=== PATIENT | male | born 1945 | race Two or more races ===

== ENCOUNTER 2020-06-28 11:47 | Outpatient (REF) | payer MEDICARE, SELFPAY | END 2020-06-28 11:48 | disposition home or self-care (01) | LOC: HO.LAB 11:47 | PROVIDERS: Visit Provider Internal Medicine | DX: Z20.828 Contact with and (suspected) exposure to other viral communicable diseases (principal) | CPT/HCPCS: C9803; U0003 ==

== ENCOUNTER 2020-06-29 09:11 | Inpatient (IN) | payer MEDICARE, SELFPAY ==
[2020-06-29] VITALS (13 sets, daily range): BP systolic 111–135; BP diastolic 50–69; PULSE 73–89; RESP 17–26; TEMP 36.6–38.1; O2SAT 86–94; BMI 31.1
--- NOTE | 2020-06-29 09:39 | XR_ITS ---
EXAMINATION: XR CHEST CLINICAL INFORMATION: Shortness of breath and cough COMPARISON: Previous chest x-ray July 2018 TECHNIQUE: Frontal view of the chest was obtained. FINDINGS: The cardiac and mediastinal contours are stable. The lung volumes are low. There is bilateral multilobar airspace disease. There is no pleural effusion or pneumothorax. Bony structures are unremarkable. XR/XR chest 1V IMPRESSION: Bilateral multilobar airspace disease suggestive of pneumonia.
--- NOTE | 2020-06-29 09:40 | ED.SOB ---
HPI - SOB/Dyspnea General Chief Complaint: General Medical Stated Complaint: SOB Time Seen by Provider: 06/29/20 09:27 Source: patient Mode of arrival: ambulatory History of Present Illness HPI Narrative: 75-year-old male with no reported past medical history presented to ED complaining of SOB, productive cough with blood-tinged sputum intermittently, decreased p.o. intake, generalized fatigue, and weakness x1 week. Reports was tested for COVID-19 yesterday, result pending. Was in contact with COVID-19 positive family member, self isolated for 14 days. Denies fever, chills, vomiting/diarrhea, LE edema, recent travel MD elicited complaint: shortness of breath and cough Related Data Home Medications Medication Instructions Recorded Confirmed amlodipine 1 tab PO DAILY 06/29/20 06/29/20 desonide appl TOPICAL BID 06/29/20 omeprazole 1 cap PO DAILY 06/29/20 06/29/20 paroxetine HCl 1 tab PO DAILY 06/29/20 06/29/20 Allergies Allergy/AdvReac Type Severity Reaction Status Date / Time peanut [Peanut] Allergy Mild RASH AND Unverified 04/07/20 17:32 HIVES Review of Systems Review of Systems: Constitutional: No Weight loss, No Fever, No Chills, No Night Sweats, + Fatigue, + Malaise ENT/Mouth: No Nasal Congestion, No Sinus Pain, No Hoarseness, No sore throat, No Rhinorrhea Eyes: No Eye Pain, No Swelling, No Redness, No Foreign Body, No Discharge, No Vision Changes Cardiovascular: No Chest Pain, + SOB, No Dyspnea on Exertion, No Orthopnea, No Edema, No Palpitations Respiratory: + Cough, + Sputum, No Wheezing, No Dyspnea Gastrointestinal: No Nausea, No Vomiting, No Diarrhea, No Abdominal pain Genitourinary: No irregular bleeding, No Dysuria, No Urinary Frequency, No Hematuria Musculoskeletal: No joint pain, + Myalgias, No Joint Swelling Skin: No Skin Lesions, No rash Neuro: + Weakness, No Numbness, No Paresthesias, No Loss of Consciousness, No Dizziness, No Headache Yes all other systems are reviewed and are negative [facility] Past Medical History Attestation statement: The following information was validated with the patient. Medical History (Updated 06/29/20 @ 14:02 by SERA Da Silva) Anxiety Hypertension Social History Social History Smoking Status: Never smoker Smoked in Last 30 Days: No Use of substances other than those prescribed or required for medical reasons: No Advance Directives: No Advance Directives Information Provided: Yes Physical Exam Vital Signs: Vital Signs: Last Vital Signs Temp 100.3 F 06/29/20 13:52 Pulse 77 06/29/20 13:52 Resp 18 06/29/20 13:52 BP 124/57 L 06/29/20 13:52 Pulse Ox 93 06/29/20 13:52 Body Mass Index 31.1 Const: General: cooperative and healthy appearing Orientation/consciousness: patient oriented x3 Limitations: no limitations HENMT: Head: Yes normal to inspection Ears: hearing grossly normal bilaterally General nose exam: Normal external nose present Face and sinus: Yes normal facial exam Eyes: General: appearance normal, both eyes and all related structures EOM: EOMs intact bilaterally Neck: Neck: Yes normal visual inspection Resp: Effort & Inspection: normal respiratory effort Auscultation: clear to auscultation bilaterally, no rales, no rhonchi and no wheezes Cardio: Rate: regular rate Heart sounds: S1 normal heart sound present and S2 normal heart sound present GI: Inspection: Yes normal to inspection Palpation (GI): Soft to palpation, nontender, no guarding and not rigid Skin: Rashes: no rashes Wounds: no wounds Neuro: General: patient oriented x3 Extrem: Other: No LE edema or calf ttp General: Yes normal to inspection Course Course Course Narrative: -ferritin, LDH, and CRP elevated > suggestive of COVID-19, AST/ALT/bilirubins mildly elevated -orthostatic vital signs negative -initial troponin 9.1> will obtain 3 hour repeat -CXR with bilateral multilobar airspace disease suggestive of pneumonia > rapid COVID-19/influenza/RSV ordered, IV empiric antibiotics, lactate, blood cultures also ordered > low concern for severe sepsis is likely viral etiology -Patient noted to be hypoxic 88-90% on RA, improved to 95% on 3L NC -lactic 1.0, COVID-19+ >> plan for admission MDM - SOB/Dyspnea MDM Narrative Medical decision making narrative: 75-year-old male with no reported past medical history presented to ED complaining of SOB, productive cough with blood-tinged sputum intermittently, decreased p.o. intake, generalized fatigue, and weakness x1 week. On exam low-grade temp a 100.5?, 92% on room air, no respiratory distress, lungs CTA, abdomen soft/nontender. Concern for viral syndrome/COVID-19 vs dehydration/metabolic abnormalities. Low concern for sepsis. Lower concern for PE Plan: EKG, labs, UA, orthostatics, CXR, reassess Lab Data Result diagrams: 06/29/20 10:21 06/29/20 10:21 Labs: Lab Results 06/29/20 06/29/20 06/29/20 Range/Units 10:21 10:21 10:21 WBC 8.0 (4.8-10.8) X10*3/uL RBC 5.01 (4.60-5.80) X10*6/uL Hgb 14.3 (14.0-18.0) g/dl Hct 40.8 L (42-52) % MCV 81.4 (80-98) fL MCH 28.5 (27.0-33.0) pg MCHC 35.0 (31.0-36.0) g/dl RDW 13.2 (11.0-16.0) % Plt Count 387 (160-400) X10*3/uL MPV 9.3 L (9.4-12.4) fL Immature Gran % (Auto) 0.5 H (0.0-0.4) % Neut % (Auto) 81.0 H (45-73) % Lymph % (Auto) 7.9 L (20-40) % [place] % (Auto) 10.4 (2-11) % Eos % (Auto) 0.1 (0-4) % Baso % (Auto) 0.1 (0-2) % Lymph # (Auto) 0.6 L (1.2-4.9) X10*3/uL [place] # (Auto) 0.8 (0.1-1.2) X10*3/uL Eos # (Auto) 0.0 (0.0-0.4) X10*3/uL Baso # (Auto) 0.0 (0.0-0.2) X10*3/uL Abs Immat Gran (auto) 0.04 H (0.00-0.03) X10*3/uL Absolute Neuts (auto) 6.5 (2.0-8.3) X10*3/uL Absolute Nucleated RBC 0.000 (0.0-0.012) X10*3/uL Nucleated RBC % (auto) 0.0 (0.0-0.2) /100WBC Smear Tech's Comments VERIFIED Hold Blue Top SEE NOTE Sodium 131 L (135-145) mmol/L Potassium 4.6 (3.3-5.1) mmol/l Chloride 100 (96-108) mmol/L Carbon Dioxide 23 (22-29) mmol/L Anion Gap 13 (12-20) BUN 11 (9-16) mg/dL Creatinine 0.93 (0.5-1.4) mg/dL Estim Creat Clear Calc 78.2 Estimated GFR > 60 Random Glucose 114 (60-115) mg/dL Lactic Acid (0.5-2.0) mmol/L Calcium 8.0 L (8.4-10.2) mg/dL Magnesium 2.2 (1.6-2.6) mg/dL Ferritin (20-250) ng/mL Total Bilirubin 1.1 H (0.0-1.0) mg/dL Direct Bilirubin 0.6 H (0.0-0.5) mg/dL AST 50 H (5-37) U/L ALT 51 H (0-40) U/L Alkaline Phosphatase 88 (39-117) U/L Lactate Dehydrogenase (118-273) U/L Troponin I High Sens (<3.5-35.0) ng/L C-Reactive Protein (< or = 0.50) mg/dL B-Natriuretic Peptide (<100) pg/mL Total Protein 6.6 (6.5-8.0) g/dL Albumin 3.6 (3.5-5.0) g/dL Lipase 41 (8-78) U/L Procalcitonin ng/mL Urine Color Urine Appearance Urine pH (5.0-8.0) Ur Specific [place] (1.005-1.025) Urine Protein (NEG-TRACE) MG/DL Urine Glucose (UA) (NEG) MG/DL Urine Ketones (NEG) MG/DL Urine Blood (NEG) Urine Nitrite (NEG) Ur Leukocyte Esterase (NEG) Urine RBC (0) /HPF Urine WBC (0-4) /HPF Ur Squamous Epith Cells /LPF Urine Bacteria /LPF Coronavirus (PCR) (Negative) Influenza Type A (PCR) (Negative) Influenza Type B (PCR) (Negative) RSV RNA Qual (PCR) (Negative) 06/29/20 06/29/20 06/29/20 Range/Units 10:21 10:21 10:21 WBC (4.8-10.8) X10*3/uL RBC (4.60-5.80) X10*6/uL Hgb (14.0-18.0) g/dl Hct (42-52) % MCV (80-98) fL MCH (27.0-33.0) pg MCHC (31.0-36.0) g/dl RDW (11.0-16.0) % Plt Count (160-400) X10*3/uL MPV (9.4-12.4) fL Immature Gran % (Auto) (0.0-0.4) % Neut % (Auto) (45-73) % Lymph % (Auto) (20-40) % [place] % (Auto) (2-11) % Eos % (Auto) (0-4) % Baso % (Auto) (0-2) % Lymph # (Auto) (1.2-4.9) X10*3/uL [place] # (Auto) (0.1-1.2) X10*3/uL Eos # (Auto) (0.0-0.4) X10*3/uL Baso # (Auto) (0.0-0.2) X10*3/uL Abs Immat Gran (auto) (0.00-0.03) X10*3/uL Absolute Neuts (auto) (2.0-8.3) X10*3/uL Absolute Nucleated RBC (0.0-0.012) X10*3/uL Nucleated RBC % (auto) (0.0-0.2) /100WBC Smear Tech's Comments Hold Blue Top Sodium (135-145) mmol/L Potassium (3.3-5.1) mmol/l Chloride (96-108) mmol/L Carbon Dioxide (22-29) mmol/L Anion Gap (12-20) BUN (9-16) mg/dL Creatinine (0.5-1.4) mg/dL Estim Creat Clear Calc Estimated GFR Random Glucose (60-115) mg/dL Lactic Acid (0.5-2.0) mmol/L Calcium (8.4-10.2) mg/dL Magnesium (1.6-2.6) mg/dL Ferritin 462 H (20-250) ng/mL Total Bilirubin (0.0-1.0) mg/dL Direct Bilirubin (0.0-0.5) mg/dL AST (5-37) U/L ALT (0-40) U/L Alkaline Phosphatase (39-117) U/L Lactate Dehydrogenase 395 H (118-273) U/L Troponin I High Sens 9.1 (<3.5-35.0) ng/L C-Reactive Protein 16.03 H (< or = 0.50) mg/dL B-Natriuretic Peptide 50 (<100) pg/mL Total Protein (6.5-8.0) g/dL Albumin (3.5-5.0) g/dL Lipase (8-78) U/L Procalcitonin ng/mL Urine Color Urine Appearance Urine pH (5.0-8.0) Ur Specific [place] (1.005-1.025) Urine Protein (NEG-TRACE) MG/DL Urine Glucose (UA) (NEG) MG/DL Urine Ketones (NEG) MG/DL Urine Blood (NEG) Urine Nitrite (NEG) Ur Leukocyte Esterase (NEG) Urine RBC (0) /HPF Urine WBC (0-4) /HPF Ur Squamous Epith Cells /LPF Urine Bacteria /LPF Coronavirus (PCR) (Negative) Influenza Type A (PCR) (Negative) Influenza Type B (PCR) (Negative) RSV RNA Qual (PCR) (Negative) 06/29/20 06/29/20 06/29/20 Range/Units 10:21 12:55 12:55 WBC (4.8-10.8) X10*3/uL RBC (4.60-5.80) X10*6/uL Hgb (14.0-18.0) g/dl Hct (42-52) % MCV (80-98) fL MCH (27.0-33.0) pg MCHC (31.0-36.0) g/dl RDW (11.0-16.0) % Plt Count (160-400) X10*3/uL MPV (9.4-12.4) fL Immature Gran % (Auto) (0.0-0.4) % Neut % (Auto) (45-73) % Lymph % (Auto) (20-40) % [place] % (Auto) (2-11) % Eos % (Auto) (0-4) % Baso % (Auto) (0-2) % Lymph # (Auto) (1.2-4.9) X10*3/uL [place] # (Auto) (0.1-1.2) X10*3/uL Eos # (Auto) (0.0-0.4) X10*3/uL Baso # (Auto) (0.0-0.2) X10*3/uL Abs Immat Gran (auto) (0.00-0.03) X10*3/uL Absolute Neuts (auto) (2.0-8.3) X10*3/uL Absolute Nucleated RBC (0.0-0.012) X10*3/uL Nucleated RBC % (auto) (0.0-0.2) /100WBC Smear Tech's Comments Hold Blue Top Sodium (135-145) mmol/L Potassium (3.3-5.1) mmol/l Chloride (96-108) mmol/L Carbon Dioxide (22-29) mmol/L Anion Gap (12-20) BUN (9-16) mg/dL Creatinine (0.5-1.4) mg/dL Estim Creat Clear Calc Estimated GFR Random Glucose (60-115) mg/dL Lactic Acid 1.0 (0.5-2.0) mmol/L Calcium (8.4-10.2) mg/dL Magnesium (1.6-2.6) mg/dL Ferritin (20-250) ng/mL Total Bilirubin (0.0-1.0) mg/dL Direct Bilirubin (0.0-0.5) mg/dL AST (5-37) U/L ALT (0-40) U/L Alkaline Phosphatase (39-117) U/L Lactate Dehydrogenase (118-273) U/L Troponin I High Sens (<3.5-35.0) ng/L C-Reactive Protein (< or = 0.50) mg/dL B-Natriuretic Peptide (<100) pg/mL Total Protein (6.5-8.0) g/dL Albumin (3.5-5.0) g/dL Lipase (8-78) U/L Procalcitonin 0.11 ng/mL Urine Color Urine Appearance Urine pH (5.0-8.0) Ur Specific [place] (1.005-1.025) Urine Protein (NEG-TRACE) MG/DL Urine Glucose (UA) (NEG) MG/DL Urine Ketones (NEG) MG/DL Urine Blood (NEG) Urine Nitrite (NEG) Ur Leukocyte Esterase (NEG) Urine RBC (0) /HPF Urine WBC (0-4) /HPF Ur Squamous Epith Cells /LPF Urine Bacteria /LPF Coronavirus (PCR) POSITIVE A (Negative) Influenza Type A (PCR) NEGATIVE (Negative) Influenza Type B (PCR) NEGATIVE (Negative) RSV RNA Qual (PCR) NEGATIVE (Negative) 06/29/20 Range/Units 13:03 WBC (4.8-10.8) X10*3/uL RBC (4.60-5.80) X10*6/uL Hgb (14.0-18.0) g/dl Hct (42-52) % MCV (80-98) fL MCH (27.0-33.0) pg MCHC (31.0-36.0) g/dl RDW (11.0-16.0) % Plt Count (160-400) X10*3/uL MPV (9.4-12.4) fL Immature Gran % (Auto) (0.0-0.4) % Neut % (Auto) (45-73) % Lymph % (Auto) (20-40) % [place] % (Auto) (2-11) % Eos % (Auto) (0-4) % Baso % (Auto) (0-2) % Lymph # (Auto) (1.2-4.9) X10*3/uL [place] # (Auto) (0.1-1.2) X10*3/uL Eos # (Auto) (0.0-0.4) X10*3/uL Baso # (Auto) (0.0-0.2) X10*3/uL Abs Immat Gran (auto) (0.00-0.03) X10*3/uL Absolute Neuts (auto) (2.0-8.3) X10*3/uL Absolute Nucleated RBC (0.0-0.012) X10*3/uL Nucleated RBC % (auto) (0.0-0.2) /100WBC Smear Tech's Comments Hold Blue Top Sodium (135-145) mmol/L Potassium (3.3-5.1) mmol/l Chloride (96-108) mmol/L Carbon Dioxide (22-29) mmol/L Anion Gap (12-20) BUN (9-16) mg/dL Creatinine (0.5-1.4) mg/dL Estim Creat Clear Calc Estimated GFR Random Glucose (60-115) mg/dL Lactic Acid (0.5-2.0) mmol/L Calcium (8.4-10.2) mg/dL Magnesium (1.6-2.6) mg/dL Ferritin (20-250) ng/mL Total Bilirubin (0.0-1.0) mg/dL Direct Bilirubin (0.0-0.5) mg/dL AST (5-37) U/L ALT (0-40) U/L Alkaline Phosphatase (39-117) U/L Lactate Dehydrogenase (118-273) U/L Troponin I High Sens (<3.5-35.0) ng/L C-Reactive Protein (< or = 0.50) mg/dL B-Natriuretic Peptide (<100) pg/mL Total Protein (6.5-8.0) g/dL Albumin (3.5-5.0) g/dL Lipase (8-78) U/L Procalcitonin ng/mL Urine Color YELLOW Urine Appearance CLEAR Urine pH 6.5 (5.0-8.0) Ur Specific [place] <= 1.005 (1.005-1.025) Urine Protein NEG (NEG-TRACE) MG/DL Urine Glucose (UA) NEG (NEG) MG/DL Urine Ketones NEG (NEG) MG/DL Urine Blood TRACE (NEG) Urine Nitrite NEG (NEG) Ur Leukocyte Esterase NEG (NEG) Urine RBC 0-2 (0) /HPF Urine WBC 0 (0-4) /HPF Ur Squamous Epith Cells NONE /LPF Urine Bacteria NONE /LPF Coronavirus (PCR) (Negative) Influenza Type A (PCR) (Negative) Influenza Type B (PCR) (Negative) RSV RNA Qual (PCR) (Negative) Discharge Plan Discharge Clinical Impression: Viral pneumonia, COVID-19 Patient Disposition: Admitted As Inpatient
[2020-06-29] MEDS: Acetaminophen 325 MG TABLET 650 MG PO (10:28)
[2020-06-29] MEDS: 0.9 % Sodium Chloride 500 ML 999 ML IVCONT (10:28)
[2020-06-29 10:38] LABS: Basophils Percent Auto 0.1 % (0-2); Eosinophils Percent Auto 0.1 % (0-4); Hematocrit 40.8 % (42-52); Hemoglobin 14.3 g/dl (14.0-18.0); Imm Gran Abs Auto 0.04 X10*3/uL (0.00-0.03); Imm Gran Pct Auto 0.5 % (0.0-0.4); Lymphocytes Absolute Auto 0.6 X10*3/uL (1.2-4.9); Lymphocytes Percent Auto 7.9 % (20-40); MANUAL DIFF FLAG SCAN; Mean Corpuscular Hemoglobin 28.5 pg (27.0-33.0); Mean Corpuscular Volume 81.4 fL (80-98); Mean Platelet Volume 9.3 fL (9.4-12.4); Monocytes Absolute Auto 0.8 X10*3/uL (0.1-1.2); Monocytes Percent Auto 10.4 % (2-11); Neutrophils Absolute Auto 6.5 X10*3/uL (2.0-8.3); Platelet Count 387 X10*3/uL (160-400); Red Blood Count 5.01 X10*6/uL (4.60-5.80); Red Cell Distribution Width 13.2 % (11.0-16.0); SCAN SMEAR FLAG 1
[2020-06-29 11:02] LABS: C Reactive Protein 16.03 mg/dL (< or = 0.50)
[2020-06-29 11:03] LABS: Lactate Dehydrogenase 395 U/L (118-273)
[2020-06-29 11:06] LABS: Alanine Aminotransferase 51 U/L (0-40); Albumin Level 3.6 g/dL (3.5-5.0); Alkaline Phosphatase 88 U/L (39-117); Anion Gap 13 (12-20); Aspartate Amino Transferase 50 U/L (5-37); Bilirubin Direct 0.6 mg/dL (0.0-0.5); Bilirubin Total 1.1 mg/dL (0.0-1.0); Blood Urea Nitrogen 11 mg/dL (9-16); Carbon Dioxide 23 mmol/L (22-29); Chloride 100 mmol/L (96-108); Creatinine Clr Calc Pharmacy 78.2; Estimated Glomerular Filt Rate > 60; Glucose Random 114 mg/dL (60-115); Lipase 41 U/L (8-78); Magnesium 2.2 mg/dL (1.6-2.6); Potassium 4.6 mmol/l (3.3-5.1); Sodium 131 mmol/L (135-145); Total Protein 6.6 g/dL (6.5-8.0)
[2020-06-29 11:08] LABS: B Type Natriuretic Peptide 50 pg/mL (<100); Troponin-I High Sensitivity 9.1 ng/L (<3.5-35.0)
[2020-06-29 11:24] LABS: Ferritin 462 ng/mL (20-250)
[2020-06-29 11:27] LABS: SLIDE REVIEW VERIFIED
[2020-06-29] MEDS: Albuterol Sulfate 90 MCG 8 GM INHALER 4 PUFF INHALE ×2 (11:29→13:19)
[2020-06-29 11:39] LABS: Procalcitonin 0.11 ng/mL
--- NOTE | 2020-06-29 12:04 | PC.NURSE ---
pt sleeping, woke to verbal stimulus, vss, threat monitoring analyst nsr 80s, will continue to monitor.
--- NOTE | 2020-06-29 13:05 | PC.NURSE ---
patient a&ox3, monitoring specialist nsr 70s, patient taken off o2 and desatted to 88%, pt placed back on o2 and recovered to 92%. patient then requested to urinate- pt stood at bedside to urinate with assist of this nurse, patient had increased dyspnea and o2 sat decreased to 86% with 2L O2, patient returned to bed and continued to be sob for approximately 5 minutes o2 sat gradually increased from 86% to 90% on the 2 liters where he currently is at, increasing O2 to 3 liters, labs drawn, urine obtained, will continue to monitor.
[2020-06-29] MEDS: cefTRIAXone sodium 1 GM in 0.9 % Sodium Chloride 50 ML IV (13:19)
[2020-06-29] MEDS: methylPREDNISolone Sod Succ/PF 125 MG/2 ML VIAL IVPUSH (13:19)
[2020-06-29 13:40] LABS: Glucose Urine UA NEG (NEG); Leukocyte Esterase Urine NEG (NEG); Nitrite Urine NEG (NEG); PH 6.5 (5.0-8.0); Specific Gravity - Urine <= 1.005 (1.005-1.025); Urine Blood TRACE (NEG); Urine Ketones NEG (NEG); Urine Protein NEG (NEG-TRACE)
[2020-06-29 13:44] LABS: Appearance Urine CLEAR; Color Urine YELLOW
[2020-06-29 13:49] LABS: RBC Urine 0-2 /HPF (0); WBC Urine 0 /HPF (0-4)
[2020-06-29] MEDS: Azithromycin 500 MG in 0.9 % Sodium Chloride 250 ML 125 MG IV (13:49)
[2020-06-29 13:52] LABS: Influenza A PCR NEGATIVE (Negative); Influenza B PCR NEGATIVE (Negative); Resp Syncy Virus RNA Qual PCR NEGATIVE (Negative); SARS COV2 PCR INHOUSE POSITIVE (Negative)
--- NOTE | 2020-06-29 13:53 | PC.NURSE ---
patient a&ox3, youth accommodation support worker nsr 70s, vitals currently stable pt at 93% on 3L O2- no current sob noted at rest, pt medicated per order, will continue to monitor.
[2020-06-29 14:27] LABS: Troponin-I High Sensitivity 6.7 ng/L (<3.5-35.0)
--- NOTE | 2020-06-29 15:47 | PC.NURSE ---
patient sleeping, woke to verbal stimulus, quality assurance monitor body nsr 68-73, vss, pt awaiting inpt bed, will continue to monitor.
--- NOTE | 2020-06-29 17:06 | PM.IMHP ---
History of Present Illness Date of Service: 06/29/20 Chief Complaint: Shortness of breath 75-year-old male with HTN, GERD, anxiety presented to ED with generalized weakness, fatigue for about a week now and now dyspnea, productive cough associated blood-tinged sputum. His apetite has been low and oral intake has decresed. He has had a positive covid exposure from a family membernd wa tested on 06/28 advised 14 days of self isolation. He presents due to worsening of his symptoms. There is no fever, diarrhea. Oxygen saturation was in 80s. CXR shows bilateral infitrates. Covid test is positive and covid inflamatory markers are high or abnormal (low lymphocytes, Ferritin 462, LDH 395, CRP 16). He's given IV Solumedrol, IV Ceftriaxone, IV Azithromycin. He falls in high risk elderly category and warrant more monitoring for his hypoxia. Review of Systems Review of Systems: Gen: no fever Resp: +sob, + cough CV: no chest, no HULL, no leg edema GI: No n/v, no abd pain Neuro: No confusion Yes all other systems are reviewed and are negative [facility] Medical History (Updated 06/29/20 @ 17:09 by Jair Khan MD) Anxiety GERD (gastroesophageal reflux disease) Hypertension Social History Smoking Status: Never smoker Smoked in Last 30 Days: No Use of substances other than those prescribed or required for medical reasons: No Advance Directives: No Advance Directives Information Provided: Yes Meds Allergies Allergy/AdvReac Type Severity Reaction Status Date / Time peanut [Peanut] Allergy Mild RASH AND Unverified 04/07/20 17:32 HIVES Home Medications Medication Instructions Recorded Confirmed Type amlodipine 1 tab PO DAILY 06/29/20 06/29/20 History desonide 1 appl TOPICAL BID 06/29/20 06/30/20 History omeprazole 1 cap PO DAILY 06/29/20 06/29/20 History paroxetine HCl 1 tab PO DAILY 06/29/20 06/29/20 History timolol maleate 1 drp OPHTHALMIC-LEFT DAILY 06/30/20 06/30/20 History Physical Exam Vital Signs and Narrative: Vital Signs: Last Vital Signs Temp 98.4 F 06/29/20 15:46 Pulse 73 06/29/20 15:46 Resp 20 06/29/20 15:46 BP 124/62 06/29/20 15:46 Pulse Ox 94 06/29/20 15:46 Body Mass Index 31.1 Constitutional Awake and Alert, No apparent distress Neck Supple, Cardiovascular RRR,, No pedal edema Respiratory No visible respiratory distress, normal respiratory effor Gastrointestinal Non tender, Non-distended Skin No rash Neurological Alert & oriented, no motor deficit Psychological Appropriate affect Results Labs CBC and Chem 7: 06/29/20 10:21 06/29/20 10:21 Labs: Laboratory Results - last 24 hr 06/29/20 06/29/20 06/29/20 10:21 10:21 10:21 MCV 81.4 MCH 28.5 MCHC 35.0 RDW 13.2 Plt Count 387 MPV 9.3 L Immature Gran % (Auto) 0.5 H Neut % (Auto) 81.0 H Lymph % (Auto) 7.9 L [place] % (Auto) 10.4 Eos % (Auto) 0.1 Baso % (Auto) 0.1 Lymph # (Auto) 0.6 L [place] # (Auto) 0.8 Eos # (Auto) 0.0 Baso # (Auto) 0.0 Abs Immat Gran (auto) 0.04 H Absolute Neuts (auto) 6.5 Absolute Nucleated RBC 0.000 Nucleated RBC % (auto) 0.0 Smear Tech's Comments VERIFIED Hold Blue Top SEE NOTE Anion Gap 13 Estim Creat Clear Calc 78.2 Estimated GFR > 60 Random Glucose 114 Lactic Acid Calcium 8.0 L Magnesium 2.2 Ferritin Total Bilirubin 1.1 H Direct Bilirubin 0.6 H AST 50 H ALT 51 H Alkaline Phosphatase 88 Lactate Dehydrogenase Troponin I High Sens C-Reactive Protein B-Natriuretic Peptide Total Protein 6.6 Albumin 3.6 Lipase 41 Procalcitonin Urine Color Urine Appearance Urine pH Ur Specific [place] Urine Protein Urine Glucose (UA) Urine Ketones Urine Blood Urine Nitrite Ur Leukocyte Esterase Urine RBC Urine WBC Ur Squamous Epith Cells Urine Bacteria Coronavirus (PCR) Influenza Type A (PCR) Influenza Type B (PCR) RSV RNA Qual (PCR) 06/29/20 06/29/20 06/29/20 10:21 10:21 10:21 MCV MCH MCHC RDW Plt Count MPV Immature Gran % (Auto) Neut % (Auto) Lymph % (Auto) [place] % (Auto) Eos % (Auto) Baso % (Auto) Lymph # (Auto) [place] # (Auto) Eos # (Auto) Baso # (Auto) Abs Immat Gran (auto) Absolute Neuts (auto) Absolute Nucleated RBC Nucleated RBC % (auto) Smear Tech's Comments Hold Blue Top Anion Gap Estim Creat Clear Calc Estimated GFR Random Glucose Lactic Acid Calcium Magnesium Ferritin 462 H Total Bilirubin Direct Bilirubin AST ALT Alkaline Phosphatase Lactate Dehydrogenase 395 H Troponin I High Sens 9.1 C-Reactive Protein 16.03 H B-Natriuretic Peptide 50 Total Protein Albumin Lipase Procalcitonin Urine Color Urine Appearance Urine pH Ur Specific [place] Urine Protein Urine Glucose (UA) Urine Ketones Urine Blood Urine Nitrite Ur Leukocyte Esterase Urine RBC Urine WBC Ur Squamous Epith Cells Urine Bacteria Coronavirus (PCR) Influenza Type A (PCR) Influenza Type B (PCR) RSV RNA Qual (PCR) 06/29/20 06/29/20 06/29/20 10:21 12:55 12:55 MCV MCH MCHC RDW Plt Count MPV Immature Gran % (Auto) Neut % (Auto) Lymph % (Auto) [place] % (Auto) Eos % (Auto) Baso % (Auto) Lymph # (Auto) [place] # (Auto) Eos # (Auto) Baso # (Auto) Abs Immat Gran (auto) Absolute Neuts (auto) Absolute Nucleated RBC Nucleated RBC % (auto) Smear Tech's Comments Hold Blue Top Anion Gap Estim Creat Clear Calc Estimated GFR Random Glucose Lactic Acid 1.0 Calcium Magnesium Ferritin Total Bilirubin Direct Bilirubin AST ALT Alkaline Phosphatase Lactate Dehydrogenase Troponin I High Sens C-Reactive Protein B-Natriuretic Peptide Total Protein Albumin Lipase Procalcitonin 0.11 Urine Color Urine Appearance Urine pH Ur Specific [place] Urine Protein Urine Glucose (UA) Urine Ketones Urine Blood Urine Nitrite Ur Leukocyte Esterase Urine RBC Urine WBC Ur Squamous Epith Cells Urine Bacteria Coronavirus (PCR) POSITIVE A Influenza Type A (PCR) NEGATIVE Influenza Type B (PCR) NEGATIVE RSV RNA Qual (PCR) NEGATIVE 06/29/20 06/29/20 13:03 13:18 MCV MCH MCHC RDW Plt Count MPV Immature Gran % (Auto) Neut % (Auto) Lymph % (Auto) [place] % (Auto) Eos % (Auto) Baso % (Auto) Lymph # (Auto) [place] # (Auto) Eos # (Auto) Baso # (Auto) Abs Immat Gran (auto) Absolute Neuts (auto) Absolute Nucleated RBC Nucleated RBC % (auto) Smear Tech's Comments Hold Blue Top Anion Gap Estim Creat Clear Calc Estimated GFR Random Glucose Lactic Acid Calcium Magnesium Ferritin Total Bilirubin Direct Bilirubin AST ALT Alkaline Phosphatase Lactate Dehydrogenase Troponin I High Sens 6.7 C-Reactive Protein B-Natriuretic Peptide Total Protein Albumin Lipase Procalcitonin Urine Color YELLOW Urine Appearance CLEAR Urine pH 6.5 Ur Specific [place] <= 1.005 Urine Protein NEG Urine Glucose (UA) NEG Urine Ketones NEG Urine Blood TRACE Urine Nitrite NEG Ur Leukocyte Esterase NEG Urine RBC 0-2 Urine WBC 0 Ur Squamous Epith Cells NONE Urine Bacteria NONE Coronavirus (PCR) Influenza Type A (PCR) Influenza Type B (PCR) RSV RNA Qual (PCR) Imaging Radiologist's Impressions: Impressions Chest X-Ray 06/29/20 09:39 IMPRESSION: Bilateral multilobar airspace disease suggestive of pneumonia. Assessment and Plan (1) Viral pneumonia: Status: Acute (2) COVID-19: Status: Acute (3) GERD (gastroesophageal reflux disease): Status: Acute 75 year old male with HTN, GERD, anxiety here with acute hypoxic respiratory failure related to covid-19 Pneumonia 1. Acute hypoxic respiratory failure due to covid 19 PNA -Oxygen and titrate to sat 90 or better -Corticosteroid dexamethasone 6 mg daily starting tomorrow, (has already received 125 mg of solumedrol) - check DDimer 2. Covid 19 PNA -Continue IV Ceftriaxone and Azithro D1 3. HTN--continue Norvasc 4. Anxiety--Paroxetine 5. Mild Hyponatremia--likely chronic from Parexetine, monitor, fluid retriction 6. GERD--Omeprazole 7. DVT Prophylaxis--Lovenox Full code
[2020-06-29 18:06] LABS: D Dimer 497 NG/ML
[2020-06-29] MEDS: Melatonin 3 MG TABLET PO (20:02)
[2020-06-29] MEDS: Enoxaparin Sodium 40 MG/0.4 ML SYRINGE SUBCUT (20:02)
[2020-06-29] MEDS: Omeprazole 20 MG CAPSULE.DR PO (20:02)
[2020-06-29] MEDS: 0.9 % Sodium Chloride Flush 3 ML SYRINGE IVFLUSH (20:07)
--- NOTE | 2020-06-29 20:15 | PC.NURSE ---
patient a&ox3, nsr ekg monitor 70s, vss- pt 92-93% on 3l o2 nc, pt oob with assist to urinate at bedside- pt did become [place] upon standing but recovered once laying back down, pt awaiting inpt bed, will continue to monitor.
--- NOTE | 2020-06-29 22:21 | PC.NURSE ---
pt currently sleeping, o2 sat is 95% on 3l O2 while sleeping, will continue to monitor
[2020-06-30] VITALS (9 sets, daily range): BP systolic 111–140; BP diastolic 54–71; PULSE 57–88; RESP 20–26; TEMP 36.5–36.7; O2SAT 92–95
[2020-06-30] MEDS: 0.9 % Sodium Chloride Flush 3 ML SYRINGE IVFLUSH ×3 (00:10→17:13)
--- NOTE | 2020-06-30 03:21 | PC.NURSE ---
Pt remains asleep in bed at this time in NAD. VSS. Continue to monitor.
--- NOTE | 2020-06-30 05:44 | PC.NURSE ---
Pt heard coughing in bed, this RN at bedside to be sure pt was in no acute distress. As this RN was asking pt if he was feeling okay, pt remained in bed with eyes closed, waving this RN away. Coughing subsided. Continue to monitor.
--- NOTE | 2020-06-30 06:06 | PC.NURSE ---
Pt remains asleep in bed at this time in NAD. VSS. Continue to monitor.
--- NOTE | 2020-06-30 08:00 | PC.NURSE ---
0800- pt resting on hospital bed comfortably, easily arrousable and responsive, no distress observed. pt denies complaints or pain. Assessment completed, pt provided with oral care supplies and performed independently. pt given breakfast tray. pt awaits bed assignment for admission.
[2020-06-30] MEDS: Omeprazole 20 MG CAPSULE.DR PO (08:08)
[2020-06-30] MEDS: amLODIPine Besylate 5 MG TABLET PO (08:08)
--- NOTE | 2020-06-30 09:47 | PC.NURSE ---
Nurse to Nurse report given to Misty in ICU. pt presentation, am VS & meds given, reviewed.
--- NOTE | 2020-06-30 10:26 | PC.NURSE ---
pt to ICU via stretcher, monitored, with belongings, no distress observed. pt ambulated from bed to stretcher, and stretcher to bed on arrival without distress/SOB, and with steady gait.
--- NOTE | 2020-06-30 11:03 | P.PNIM_ITS ---
Subjective Subjective Date of Service: 06/30/20 Interval History: Seen in f/u with acute hypoxic respiratory failure d/t covid pneumonia. He remains hypoxic and getting oxygen ROS: no fever, + SOB Physical Exam Vital Signs: Vital Signs: Last Vital Signs Temp 98.1 F 06/30/20 08:01 Pulse 88 06/30/20 08:08 Resp 20 06/30/20 08:01 BP 140/71 H 06/30/20 08:08 Pulse Ox 92 06/30/20 08:01 Body Mass Index 31.1 Objective Data Current Medications Generic Name Dose Route Start Last Admin Trade Name Freq PRN Reason Stop Dose Admin Acetaminophen 650 mg 06/29/20 17:51 Acetaminophen Supp 650 Mg Supp.Rect [place] Q6H PRN Pain, Mild (Pain Scale 1-3) Amlodipine Besylate 5 mg 06/30/20 09:00 06/30/20 08:08 Amlodipine Besylate 5 Mg Tablet PO 5 mg DAILY [facility] Administration Protocol Dexamethasone 6 mg 06/30/20 11:00 Dexamethasone 6 Mg Tablet PO DAILY [facility] Dexamethasone Sodium Phosphate 6 mg 06/30/20 11:00 Dexamethasone Sod Phosphate 4 Mg/Ml Vial IVPUSH 07/09/20 09:01 DAILY [facility] Enoxaparin Sodium 40 mg 06/29/20 17:51 06/29/20 20:02 Enoxaparin Sodium 40 Mg/0.4 Ml Syringe SUBCUT 40 mg Q24H [facility] Administration Ceftriaxone Sodium 1 gm/ 50 mls @ 100 mls/hr 06/30/20 11:00 Sodium Chloride IV Q24H [facility]I Azithromycin 500 mg/ Sodium 250 mls @ 125 mls/hr 06/30/20 11:00 Chloride IV Q24H [facility] Magnesium Hydroxide 30 ml 06/29/20 17:51 Milk Of Magnesia 30 Ml Oral.Susp PO DAILY PRN Constipation Melatonin 3 mg 06/29/20 17:51 Melatonin 3 Mg Tablet PO BEDTIME PRN insomnia Omeprazole 20 mg 06/29/20 17:51 06/30/20 08:08 Omeprazole 20 Mg Capsule.Dr PO 20 mg DAILY [facility] Administration Paroxetine HCl 10 mg 06/30/20 09:00 Paroxetine Hcl 10 Mg Tablet PO DAILY [facility] Sodium Chloride 3 ml 06/29/20 17:51 06/30/20 00:10 0.9 % Sodium Chloride Flush 3 Ml Syringe IVFLUSH 3 ml QSHIFT [facility] Administration Labs CBC & Chem 7: 06/29/20 10:21 06/29/20 10:21 Assessment and Plan (1) Viral pneumonia: Status: Acute (2) COVID-19: Status: Acute (3) GERD (gastroesophageal reflux disease): Status: Acute Assessment and Plan: 75 year old male with HTN, GERD, anxiety here with acute hypoxic respiratory failure related to covid-19 Pneumonia 1. Acute hypoxic respiratory failure due to covid 19 PNA--still hypoxic -continue Oxygen and titrate to sat 90 or better -Corticosteroid dexamethasone 6 mg daily for 10 days, D#2 2. Covid 19 PNA -Continue IV Ceftriaxone and Azithro D2 3. HTN--continue Norvasc 4. Anxiety--Paroxetine 5. Mild Hyponatremia--likely chronic from Parexetine, monitor, fluid retriction 6. GERD--Omeprazole 7. DVT Prophylaxis--Lovenox Full code
[2020-06-30] MEDS: cefTRIAXone sodium 1 GM in 0.9 % Sodium Chloride 50 ML IV (11:59)
[2020-06-30] MEDS: PARoxetine HCL 10 MG TABLET PO (11:59)
[2020-06-30] MEDS: Azithromycin 500 MG in 0.9 % Sodium Chloride 250 ML 125 MG IV (12:00)
[2020-06-30] MEDS: dexAMETHasone sod phosphate 4 MG/ML VIAL 6 MG IVPUSH (12:49)
[2020-06-30] MEDS: Enoxaparin Sodium 40 MG/0.4 ML SYRINGE SUBCUT (17:12)
--- NOTE | 2020-06-30 18:44 | PC.NURSE ---
Patient resting comfortably on 3L NC. Desats to high 70s when exerting self. Vitals stable. Afebrile. Utilized interpretor services. Will continue to monitor.
[2020-07-01] VITALS (7 sets, daily range): BP systolic 126–174; BP diastolic 71–84; PULSE 73–86; RESP 16–20; TEMP 35.9–37.1; O2SAT 90–95; BMI 31.1
[2020-07-01] MEDS: 0.9 % Sodium Chloride Flush 3 ML SYRINGE IVFLUSH ×4 (00:47→21:48)
[2020-07-01] MEDS: dexAMETHasone sod phosphate 4 MG/ML VIAL 6 MG IVPUSH (09:10)
[2020-07-01] MEDS: Omeprazole 20 MG CAPSULE.DR PO (09:11)
[2020-07-01] MEDS: amLODIPine Besylate 5 MG TABLET PO (09:11)
[2020-07-01] MEDS: PARoxetine HCL 10 MG TABLET PO (09:11)
[2020-07-01] MEDS: Azithromycin 500 MG in 0.9 % Sodium Chloride 250 ML 125 MG IV (11:56)
--- NOTE | 2020-07-01 12:39 | HO.PM.IMPN ---
Subjective Subjective Date of Service: 07/01/20 Interval History: Seen in f/u with acute hypoxic respiratory failure d/t covid pneumonia. He remains hypoxic and getting oxygen presently at 3L Review of Systems Gen: no fever Resp: +sob, + cough CV: no chest, no HULL, no leg edema GI: No n/v, no abd pain Neuro: No confusion Physical Exam Vital Signs: Vital Signs: Last Vital Signs Temp 96.7 F L 07/01/20 12:00 Pulse 80 07/01/20 12:00 Resp 20 07/01/20 03:36 BP 126/74 07/01/20 12:00 Pulse Ox 92 07/01/20 12:00 Body Mass Index 31.1 General: AO X 3, no acute distress Resp: normal respiratory effort CVS: S1,S2,RRR GI: +BS, NT, no distention Skin: No rash Neuro: motor grossly intact Psych: appropriate affect Objective Data Current Medications Generic Name Dose Route Start Last Admin Trade Name Freq PRN Reason Stop Dose Admin Acetaminophen 650 mg 06/29/20 17:51 Acetaminophen Supp 650 Mg Supp.Rect [place] Q6H PRN Pain, Mild (Pain Scale 1-3) Amlodipine Besylate 5 mg 06/30/20 09:00 07/01/20 09:11 Amlodipine Besylate 5 Mg Tablet PO 5 mg DAILY [facility] Administration Protocol Dexamethasone Sodium Phosphate 6 mg 06/30/20 11:00 07/01/20 09:10 Dexamethasone Sod Phosphate 4 Mg/Ml Vial IVPUSH 07/09/20 09:01 6 mg DAILY [facility] Administration Enoxaparin Sodium 40 mg 06/29/20 17:51 06/30/20 17:12 Enoxaparin Sodium 40 Mg/0.4 Ml Syringe SUBCUT 40 mg Q24H [facility] Administration Ceftriaxone Sodium 1 gm/ 50 mls @ 100 mls/hr 06/30/20 13:00 06/30/20 13:12 Sodium Chloride IV Infused Q24H [facility] Infusion Azithromycin 500 mg/ Sodium 250 mls @ 125 mls/hr 06/30/20 12:00 07/01/20 11:56 Chloride IV 125 mls/hr Q24H [facility] Administration Magnesium Hydroxide 30 ml 06/29/20 17:51 Milk Of Magnesia 30 Ml Oral.Susp PO DAILY PRN Constipation Melatonin 3 mg 06/29/20 17:51 Melatonin 3 Mg Tablet PO BEDTIME PRN insomnia Omeprazole 20 mg 06/29/20 17:51 07/01/20 09:11 Omeprazole 20 Mg Capsule. PO 20 mg DAILY [facility] Administration Paroxetine HCl 10 mg 06/30/20 09:00 07/01/20 09:11 Paroxetine Hcl 10 Mg Tablet PO 10 mg DAILY [facility] Administration Sodium Chloride 3 ml 06/29/20 17:51 07/01/20 09:10 0.9 % Sodium Chloride Flush 3 Ml Syringe IVFLUSH 3 ml QSHIFT [facility] Administration Labs CBC & Chem 7: 06/29/20 10:21 06/29/20 10:21 Microbiology Microbiology Results: Microbiology 06/29/20 13:18 Blood - Venous Blood Culture - Preliminary No growth after 24 hours. 06/29/20 12:55 Blood - Venous Blood Culture - Preliminary No growth after 24 hours. Assessment and Plan (1) Viral pneumonia: Status: Acute (2) COVID-19: Status: Acute (3) GERD (gastroesophageal reflux disease): Status: Acute Assessment and Plan: 75 year old male with HTN, GERD, anxiety here with acute hypoxic respiratory failure related to covid-19 Pneumonia 1. Acute hypoxic respiratory failure due to covid 19 PNA--still hypoxic, but clinically is looking well -continue Oxygen and titrate to sat 90 or better -Corticosteroid dexamethasone 6 mg daily for 10 days, D#3 2. Covid 19 PNA -Continue IV Ceftriaxone and Azithro D3 3. HTN--continue Norvasc 4. Anxiety--Paroxetine 5. Mild Hyponatremia--likely chronic from Parexetine, monitor, fluid retriction 6. GERD--Omeprazole 7. DVT Prophylaxis--Lovenox Full code
--- NOTE | 2020-07-01 13:15 | MHC.CM.PN ---
IMM 07/01/20 Male 75 dx covid + He lives alone and is independent all functional mobility. HCP documented placed on chart. Copies provided to Pt and DTR. DP home no services family transport. CM will follow.
[2020-07-01] MEDS: cefTRIAXone sodium 1 GM in 0.9 % Sodium Chloride 50 ML IV (13:40)
[2020-07-01] MEDS: Enoxaparin Sodium 40 MG/0.4 ML SYRINGE SUBCUT (17:31)
[2020-07-02] VITALS (8 sets, daily range): BP systolic 131–170; BP diastolic 65–81; PULSE 65–95; RESP 16–19; TEMP 36.1–36.6; O2SAT 90–94
[2020-07-02] MEDS: 0.9 % Sodium Chloride Flush 3 ML SYRINGE IVFLUSH ×2 (08:45→16:11)
[2020-07-02] MEDS: Omeprazole 20 MG CAPSULE.DR PO (08:45)
[2020-07-02] MEDS: amLODIPine Besylate 5 MG TABLET PO (08:45)
[2020-07-02] MEDS: PARoxetine HCL 10 MG TABLET PO (08:45)
[2020-07-02] MEDS: dexAMETHasone sod phosphate 4 MG/ML VIAL 6 MG IVPUSH (08:45)
--- NOTE | 2020-07-02 09:21 | P.PNIM_ITS ---
Subjective Subjective Date of Service: 07/02/20 Interval History: Seen in f/u with acute hypoxic respiratory failure d/t covid pneumonia. He remains hypoxic sating below 90 with ox off and 91 on 1 liters thus far. Spoke to patient via certified court/medical interpreter Review of Systems Gen: no fever Resp: +sob, + cough CV: no chest, no HULL, no leg edema GI: No n/v, no abd pain Neuro: No confusion Physical Exam Vital Signs: Vital Signs: Last Vital Signs Temp 97.5 F 07/02/20 07:55 Pulse 82 07/02/20 08:45 Resp 19 07/02/20 07:55 BP 170/81 H 07/02/20 08:45 Pulse Ox 90 L 07/02/20 07:55 Body Mass Index 31.1 Const: Other: General: AO X 3, no acute distress Resp: normal respiratory effort CVS: S1,S2,RRR GI: +BS, NT, no distention Skin: No rash Neuro: motor grossly intact Psych: appropriate affect Objective Data Current Medications Generic Name Dose Route Start Last Admin Trade Name Freq PRN Reason Stop Dose Admin Acetaminophen 650 mg 06/29/20 17:51 Acetaminophen Supp 650 Mg Supp.Rect [place] Q6H PRN Pain, Mild (Pain Scale 1-3) Amlodipine Besylate 5 mg 06/30/20 09:00 07/02/20 08:45 Amlodipine Besylate 5 Mg Tablet PO 5 mg DAILY [facility] Administration Protocol Dexamethasone Sodium Phosphate 6 mg 06/30/20 11:00 07/02/20 08:45 Dexamethasone Sod Phosphate 4 Mg/Ml Vial IVPUSH 07/09/20 09:01 6 mg DAILY [facility] Administration Enoxaparin Sodium 40 mg 06/29/20 17:51 07/01/20 17:31 Enoxaparin Sodium 40 Mg/0.4 Ml Syringe SUBCUT 40 mg Q24H [facility] Administration Ceftriaxone Sodium 1 gm/ 50 mls @ 100 mls/hr 06/30/20 13:00 07/01/20 14:37 Sodium Chloride IV Infused Q24H [facility] Infusion Azithromycin 500 mg/ Sodium 250 mls @ 125 mls/hr 06/30/20 12:00 07/01/20 14:37 Chloride IV Infused Q24H [facility] Infusion Magnesium Hydroxide 30 ml 06/29/20 17:51 Milk Of Magnesia 30 Ml Oral.Susp PO DAILY PRN Constipation Melatonin 3 mg 06/29/20 17:51 Melatonin 3 Mg Tablet PO BEDTIME PRN insomnia Omeprazole 20 mg 06/29/20 17:51 07/02/20 08:45 Omeprazole 20 Mg Capsule. PO 20 mg DAILY [facility] Administration Paroxetine HCl 10 mg 06/30/20 09:00 07/02/20 08:45 Paroxetine Hcl 10 Mg Tablet PO 10 mg DAILY [facility] Administration Sodium Chloride 3 ml 06/29/20 17:51 07/02/20 08:45 0.9 % Sodium Chloride Flush 3 Ml Syringe IVFLUSH 3 ml QSHIFT [facility] Administration Labs CBC & Chem 7: 06/29/20 10:21 06/29/20 10:21 Microbiology Microbiology Results: Microbiology 06/29/20 13:18 Blood - Venous Blood Culture - Preliminary No growth after 48 hours. 06/29/20 12:55 Blood - Venous Blood Culture - Preliminary No growth after 48 hours. Assessment and Plan (1) Viral pneumonia: Status: Acute (2) COVID-19: Status: Acute (3) GERD (gastroesophageal reflux disease): Status: Acute Assessment and Plan: 75 year old male with HTN, GERD, anxiety here with acute hypoxic respiratory failure related to covid-19 Pneumonia 1. Acute hypoxic respiratory failure due to covid 19 PNA--still hypoxic, but clinically is looking well -continue Oxygen and titrate to sat 90 or better -Corticosteroid dexamethasone 6 mg daily for 10 days, D#4 2. Covid 19 PNA -Continue IV Ceftriaxone and Azithro D3 for 5 to 7 days 3. HTN--continue Norvasc 4. Anxiety--Paroxetine 5. Mild Hyponatremia--likely chronic from Parexetine, monitor, fluid retriction 6. GERD--Omeprazole 7. DVT Prophylaxis--Lovenox Full code
--- NOTE | 2020-07-02 11:14 | MHC.CM.PN ---
CM spoke with Daughter/Aster at [phone] (Covid precautions). Patient lives in a house with his Daughter/DIANA/Jeana and his 24 year old Granddaughter and he is functionally independent.PCP is DR. Ethan Krause. The goal for dc is for Patient to return home and CM has initiated and will follow for dc planning. HCP completed yesterday. Original IMM to be mailed out certified letter to Aster and a copy has been placed on the chart.
[2020-07-02] MEDS: Azithromycin 500 MG in 0.9 % Sodium Chloride 250 ML 125 MG IV (12:03)
[2020-07-02] MEDS: cefTRIAXone sodium 1 GM in 0.9 % Sodium Chloride 50 ML IV (14:16)
[2020-07-02] MEDS: Enoxaparin Sodium 40 MG/0.4 ML SYRINGE SUBCUT (17:56)
[2020-07-03] VITALS (7 sets, daily range): BP systolic 125–153; BP diastolic 63–82; PULSE 66–82; RESP 14–20; TEMP 36.2–36.8; O2SAT 90–95
--- NOTE | 2020-07-03 | PC.NURSE ---
PT NOTED TO HAVE O2 SATS 88% ON ROOM AIR WHEN SLEEPING.O2 APPLIED AT 2L,SATS IMPROVED TO 94%.CONT TO MONITOR.
[2020-07-03] MEDS: 0.9 % Sodium Chloride Flush 3 ML SYRINGE IVFLUSH ×4 (00:09→23:37)
[2020-07-03] MEDS: amLODIPine Besylate 5 MG TABLET PO (09:24)
[2020-07-03] MEDS: dexAMETHasone sod phosphate 4 MG/ML VIAL 6 MG IVPUSH (09:24)
[2020-07-03] MEDS: Omeprazole 20 MG CAPSULE.DR PO (09:24)
[2020-07-03] MEDS: PARoxetine HCL 10 MG TABLET PO (09:24)
--- NOTE | 2020-07-03 10:51 | HO.PM.IMPN ---
Subjective Subjective Date of Service: 07/03/20 Interval History: Seen in f/u with acute hypoxic respiratory failure d/t covid pneumonia. He remains hypoxic sating below 90 with ox off and 91 on 1 liters thus, but symptomatically he feels great Review of Systems Gen: no fever Resp: +sob, + cough CV: no chest, no HULL, no leg edema GI: No n/v, no abd pain Neuro: No confusion Physical Exam Vital Signs: Vital Signs: Last Vital Signs Temp 97.6 F 07/03/20 08:00 Pulse 68 07/03/20 09:24 Resp 20 07/03/20 08:00 BP 132/69 07/03/20 09:24 Pulse Ox 90 L 07/03/20 08:00 Body Mass Index 31.1 Const: Other: General: AO X 3, no acute distress Resp: normal respiratory effort CVS: S1,S2,RRR GI: +BS, NT, no distention Skin: No rash Neuro: motor grossly intact Psych: appropriate affect General: cooperative and healthy appearing Orientation/consciousness: patient oriented x3 Limitations: no limitations Neuro: General: patient oriented x3 Objective Data Current Medications Generic Name Dose Route Start Last Admin Trade Name Freq PRN Reason Stop Dose Admin Acetaminophen 650 mg 06/29/20 17:51 Acetaminophen Supp 650 Mg Supp.Rect [place] Q6H PRN Pain, Mild (Pain Scale 1-3) Amlodipine Besylate 5 mg 06/30/20 09:00 07/03/20 09:24 Amlodipine Besylate 5 Mg Tablet PO 5 mg DAILY [facility] Administration Protocol Dexamethasone Sodium Phosphate 6 mg 06/30/20 11:00 07/03/20 09:24 Dexamethasone Sod Phosphate 4 Mg/Ml Vial IVPUSH 07/09/20 09:01 6 mg DAILY [facility] Administration Enoxaparin Sodium 40 mg 06/29/20 17:51 07/02/20 17:56 Enoxaparin Sodium 40 Mg/0.4 Ml Syringe SUBCUT 40 mg Q24H [facility] Administration Ceftriaxone Sodium 1 gm/ 50 mls @ 100 mls/hr 06/30/20 13:00 07/02/20 16:08 Sodium Chloride IV Infused Q24H [facility] Infusion Azithromycin 500 mg/ Sodium 250 mls @ 125 mls/hr 06/30/20 12:00 07/02/20 14:15 Chloride IV Infused Q24H [facility] Infusion Magnesium Hydroxide 30 ml 06/29/20 17:51 Milk Of Magnesia 30 Ml Oral.Susp PO DAILY PRN Constipation Melatonin 3 mg 06/29/20 17:51 Melatonin 3 Mg Tablet PO BEDTIME PRN insomnia Omeprazole 20 mg 06/29/20 17:51 07/03/20 09:24 Omeprazole 20 Mg Capsule.Dr PO 20 mg DAILY [facility] Administration Paroxetine HCl 10 mg 06/30/20 09:00 07/03/20 09:24 Paroxetine Hcl 10 Mg Tablet PO 10 mg DAILY [facility] Administration Sodium Chloride 3 ml 06/29/20 17:51 07/03/20 09:24 0.9 % Sodium Chloride Flush 3 Ml Syringe IVFLUSH 3 ml QSHIFT [facility] Administration Labs CBC & Chem 7: 06/29/20 10:21 06/29/20 10:21 Microbiology Microbiology Results: Microbiology 06/29/20 13:18 Blood - Venous Blood Culture - Preliminary No growth after 48 hours. 06/29/20 12:55 Blood - Venous Blood Culture - Preliminary No growth after 48 hours. Assessment and Plan (1) Viral pneumonia: Status: Acute (2) COVID-19: Status: Acute (3) GERD (gastroesophageal reflux disease): Status: Acute Assessment and Plan: 75 year old male with HTN, GERD, anxiety here with acute hypoxic respiratory failure related to covid-19 Pneumonia 1. Acute hypoxic respiratory failure due to covid 19 PNA--still hypoxic, but clinically is looking well -continue Oxygen and titrate to sat 90 or better -Corticosteroid dexamethasone 6 mg daily for 10 days, D#5 2. Covid 19 PNA -Continue IV Ceftriaxone and Azithro D3 for 5 to 7 days, Ceftin at dc 3. HTN--continue Norvasc 4. Anxiety--Paroxetine 5. Mild Hyponatremia--likely chronic from Parexetine, monitor, fluid retriction 6. GERD--Omeprazole 7. DVT Prophylaxis--Lovenox Full code Hopefully home tomorrow
[2020-07-03] MEDS: Azithromycin 500 MG in 0.9 % Sodium Chloride 250 ML 125 MG IV (11:43)
[2020-07-03] MEDS: cefTRIAXone sodium 1 GM in 0.9 % Sodium Chloride 50 ML IV (14:24)
[2020-07-03] MEDS: Enoxaparin Sodium 40 MG/0.4 ML SYRINGE SUBCUT (17:17)
--- NOTE | 2020-07-03 18:38 | PC.NURSE ---
PT ON 3L O2 VIA NASAL CANNULA MAJORIY OF DAY FOR CONTINOUS PULSE OX OF 90-91% CONSISENTLY. SOME IMPRVEMENT IN THE EVENING UP TO 94-95%. 02 BROUGHT DOWN TO 2L AND PULSE OX MAINTAINING MID 90'S. PT PERFORMING INCENTIVE SPIROMETRY AND COUGH DEEP BREATH THROUGHOUT DAY.FREQUENT AMBULATION IN THE ROOM.
[2020-07-04 03:44] VITALS: BP 127/60; PULSE 66; RESP 18; TEMP 36.7; O2SAT 95
[2020-07-04] MEDS: Omeprazole 20 MG CAPSULE.DR PO (06:28)
[2020-07-04 08:00] VITALS: BP 134/71; PULSE 70; RESP 18; TEMP 36.2; O2SAT 94
[2020-07-04 08:52] VITALS: BP 134/71; PULSE 70
[2020-07-04] MEDS: amLODIPine Besylate 5 MG TABLET PO (08:52)
[2020-07-04] MEDS: 0.9 % Sodium Chloride Flush 3 ML SYRINGE IVFLUSH (08:52)
[2020-07-04] MEDS: dexAMETHasone sod phosphate 4 MG/ML VIAL 6 MG IVPUSH (08:52)
[2020-07-04] MEDS: PARoxetine HCL 10 MG TABLET PO (08:52)
--- NOTE | 2020-07-04 09:47 | P.DS_ITS ---
DS: Providers Provider Date of admission: 06/29/20 14:59 Primary care physician: Ethan Krause MD Consults: 06/29/20 09:49 Consult Respiratory Therapy Routine Reason for consultation: Ambulate with pulse ox. Potential COVID-19 Has provider been notified: No 07/03/20 10:50 Consult to Pulmonology Routine Consulting Provider: Wu Mendez Reason for consultation: persistent hypoxia with covid, doing good otherwise DS: Diagnosis Discharge Diagnosis (1) COVID-19: Status: Acute (2) Viral pneumonia: Status: Acute (3) GERD (gastroesophageal reflux disease): Status: Acute DS: Medications Discharge Medications Home Medications: Home Medications Medication Instructions Recorded Confirmed amlodipine 1 tab PO DAILY 06/29/20 06/29/20 desonide 1 appl TOPICAL BID 06/29/20 06/30/20 omeprazole 1 cap PO DAILY 06/29/20 06/29/20 paroxetine HCl 1 tab PO DAILY 06/29/20 06/29/20 timolol maleate 1 drp OPHTHALMIC-LEFT DAILY 06/30/20 06/30/20 Previous Rx's Medication Instructions Recorded azithromycin 500 mg PO DAILY 3 Days #3 tab 07/04/20 cefuroxime axetil 500 mg PO Q12H #6 tab 07/04/20 dexamethasone [Decadron] 8 mg PO DAILY #10 tab 07/04/20 DS: Summary Hospital Course Hospital Course: Patient presented with respiratory failure with hypoxia due to COVID-19. He was empirically treated with IV antibiotics for superimposed bacterial infection. He was given supplemental oxygen was started on dexamethasone. Fortunately with these measures, the patient's hypoxia resolved and he is down to room air at the time of discharge. He is to complete 3 more days of antibiotics and 5 more days of Decadron. He is been educated on continuous lesions per CDC guidelines. Time Spent with Patient Time attestation: Total time spent providing and/or coordinating discharge services: Physical Exam Vital Signs: Vital Signs: Last Vital Signs Temp 97.2 F 07/04/20 08:00 Pulse 70 07/04/20 08:52 Resp 18 07/04/20 08:00 BP 134/71 07/04/20 08:52 Pulse Ox 94 07/04/20 08:00 Body Mass Index 31.1 General - no acute distress, appears comfortable Cardiovascular - regular rate and rhythm, S1-S2 Lungs - normal respiratory effort, clear to auscultation bilaterally, no wheezing Abdomen - soft, nontender, no rebound or guarding Extremities - no edema bilaterally Neuro - awake and alert, no focal deficits DS: Data Data Completed and Pending Labs on day of discharge: Laboratory Last Values WBC 8.0 X10*3/uL (4.8-10.8) 06/29/20 10:21 RBC 5.01 X10*6/uL (4.60-5.80) 06/29/20 10:21 Hgb 14.3 g/dl (14.0-18.0) 06/29/20 10:21 Hct 40.8 % (42-52) L 06/29/20 10:21 MCV 81.4 fL (80-98) 06/29/20 10:21 MCH 28.5 pg (27.0-33.0) 06/29/20 10:21 MCHC 35.0 g/dl (31.0-36.0) 06/29/20 10:21 RDW 13.2 % (11.0-16.0) 06/29/20 10:21 Plt Count 387 X10*3/uL (160-400) 06/29/20 10:21 MPV 9.3 fL (9.4-12.4) L 06/29/20 10:21 Immature Gran % (Auto) 0.5 % (0.0-0.4) H 06/29/20 10:21 Neut % (Auto) 81.0 % (45-73) H 06/29/20 10:21 Lymph % (Auto) 7.9 % (20-40) L 06/29/20 10:21 [place] % (Auto) 10.4 % (2-11) 06/29/20 10:21 Eos % (Auto) 0.1 % (0-4) 06/29/20 10:21 Baso % (Auto) 0.1 % (0-2) 06/29/20 10:21 Lymph # (Auto) 0.6 X10*3/uL (1.2-4.9) L 06/29/20 10:21 [place] # (Auto) 0.8 X10*3/uL (0.1-1.2) 06/29/20 10:21 Eos # (Auto) 0.0 X10*3/uL (0.0-0.4) 06/29/20 10:21 Baso # (Auto) 0.0 X10*3/uL (0.0-0.2) 06/29/20 10:21 Abs Immat Gran (auto) 0.04 X10*3/uL (0.00-0.03) H 06/29/20 10:21 Absolute Neuts (auto) 6.5 X10*3/uL (2.0-8.3) 06/29/20 10:21 Absolute Nucleated RBC 0.000 X10*3/uL (0.0-0.012) 06/29/20 10:21 Nucleated RBC % (auto) 0.0 /100WBC (0.0-0.2) 06/29/20 10:21 Smear Tech's Comments VERIFIED 06/29/20 10:21 D-Dimer 497 NG/ML 06/29/20 10:21 Hold Blue Top SEE NOTE 06/29/20 10:21 Sodium 131 mmol/L (135-145) L 06/29/20 10:21 Potassium 4.6 mmol/l (3.3-5.1) 06/29/20 10:21 Chloride 100 mmol/L (96-108) 06/29/20 10:21 Carbon Dioxide 23 mmol/L (22-29) 06/29/20 10:21 Anion Gap 13 (12-20) 06/29/20 10:21 BUN 11 mg/dL (9-16) 06/29/20 10:21 Creatinine 0.93 mg/dL (0.5-1.4) 06/29/20 10:21 Estim Creat Clear Calc 78.2 06/29/20 10:21 Estimated GFR > 60 06/29/20 10:21 Random Glucose 114 mg/dL (60-115) 06/29/20 10:21 Lactic Acid 1.0 mmol/L (0.5-2.0) 06/29/20 12:55 Calcium 8.0 mg/dL (8.4-10.2) L 06/29/20 10:21 Magnesium 2.2 mg/dL (1.6-2.6) 06/29/20 10:21 Ferritin 462 ng/mL (20-250) H 06/29/20 10:21 Total Bilirubin 1.1 mg/dL (0.0-1.0) H 06/29/20 10:21 Direct Bilirubin 0.6 mg/dL (0.0-0.5) H 06/29/20 10:21 AST 50 U/L (5-37) H 06/29/20 10:21 ALT 51 U/L (0-40) H 06/29/20 10:21 Alkaline Phosphatase 88 U/L (39-117) 06/29/20 10:21 Lactate Dehydrogenase 395 U/L (118-273) H 06/29/20 10:21 Troponin I High Sens 6.7 ng/L (<3.5-35.0) 06/29/20 13:18 C-Reactive Protein 16.03 mg/dL (< or = 0.50) H 06/29/20 10:21 B-Natriuretic Peptide 50 pg/mL (<100) 06/29/20 10:21 Total Protein 6.6 g/dL (6.5-8.0) 06/29/20 10:21 Albumin 3.6 g/dL (3.5-5.0) 06/29/20 10:21 Lipase 41 U/L (8-78) 06/29/20 10:21 Procalcitonin 0.11 ng/mL 06/29/20 10:21 Urine Color YELLOW 06/29/20 13:03 Urine Appearance CLEAR 06/29/20 13:03 Urine pH 6.5 (5.0-8.0) 06/29/20 13:03 Ur Specific [place] <= 1.005 (1.005-1.025) 06/29/20 13:03 Urine Protein NEG MG/DL (NEG-TRACE) 06/29/20 13:03 Urine Glucose (UA) NEG MG/DL (NEG) 06/29/20 13:03 Urine Ketones NEG MG/DL (NEG) 06/29/20 13:03 Urine Blood TRACE (NEG) 06/29/20 13:03 Urine Nitrite NEG (NEG) 06/29/20 13:03 Ur Leukocyte Esterase NEG (NEG) 06/29/20 13:03 Urine RBC 0-2 /HPF (0) 06/29/20 13:03 Urine WBC 0 /HPF (0-4) 06/29/20 13:03 Ur Squamous Epith Cells NONE /LPF 06/29/20 13:03 Urine Bacteria NONE /LPF 06/29/20 13:03 Coronavirus (PCR) POSITIVE (Negative) A 06/29/20 12:55 Influenza Type A (PCR) NEGATIVE (Negative) 06/29/20 12:55 Influenza Type B (PCR) NEGATIVE (Negative) 06/29/20 12:55 RSV RNA Qual (PCR) NEGATIVE (Negative) 06/29/20 12:55 Preliminary micro results at discharge 06/29/20 13:18 Blood Culture - Preliminary Blood - Venous No growth after 48 hours. 06/29/20 12:55 Blood Culture - Preliminary Blood - Venous No growth after 48 hours. Discharge Plan Discharge Patient Disposition: Home, Self-Care Referrals: Name,MD Ethan [Primary Care Provider] - Discharge Medications: New dexamethasone [Decadron] 4 mg tablet 8 mg PO DAILY Qty: 10 RF: 0 cefuroxime axetil 500 mg tablet 500 mg PO Q12H Qty: 6 RF: 0 azithromycin 500 mg tablet 500 mg PO DAILY 3 Days Qty: 3 RF: 0 Continued desonide 0.05 % cream 1 appl topical BID RF: 0 paroxetine HCl 10 mg tablet 1 tab PO DAILY RF: 0 amlodipine 5 mg tablet 1 tab PO DAILY RF: 0 omeprazole 20 mg capsule,delayed release(DR/EC) 1 cap PO DAILY RF: 0 timolol maleate 0.5 % Drops 1 drp ophthalmic-Left DAILY RF: 0 Discharge Orders: Discharge Order (Routine); Ordered 07/04/20 Ordered By: Baldev Lujan Diet: advance to usual diet Activity on Discharge: As tolerated Visit Report Forms: Patient Portal Discharge page Care Plan Goals: To stay healthy and out of the hospital. Health Concerns: COVID 19 Plan of Treatment: Finish 3 more days of antibiotics and 5 more days of decadron Maintain isolation per CDC guidelines.
--- NOTE | 2020-07-04 10:07 | MHC.CM.PN ---
Patient is being discharged today, home no services. Dtr/HCP Jeana will provide transportation.
== END 2020-07-04 13:25 | disposition home or self-care (01) | DRG 177 ==
LOC: HO.ED 15:02 → HO.ICU 06-30 07:32 → HO.IMC 06-30 21:11
PROVIDERS: Physician Assistant; Admitting Provider Internal Medicine; Emergency Provider Emergency Medicine; PCP Internal Medicine Geriatric Medicine; Visit Provider Family Medicine
DX: U07.1 COVID-19 (principal); J12.89 Other viral pneumonia; J96.01 Acute respiratory failure with hypoxia; R04.2 Hemoptysis; E87.1 Hypo-osmolality and hyponatremia; K21.9 Gastro-esophageal reflux disease without esophagitis; F41.9 Anxiety disorder, unspecified; Z79.899 Other long term (current) drug therapy
CPT/HCPCS: 0241U; 36415; 71045; 80048; 80076; 81001; 82728; 83605; 83615; 83690; 83735; 83880; 84145; 84484; 85025; 85379; 86140; 87040; 96365; 96366; 96367; 99285; C9803; J0456; J0696; J1100; J1650; J2930; U0003

== ENCOUNTER 2022-10-30 09:18 | Outpatient (REF) | payer OTHER, SELFPAY ==
[2022-10-30 10:43] LABS: Hematocrit 47.3 % (42.0-52.0); Hemoglobin 15.8 g/dl (14.0-18.0); Mean Corpuscular HGB Conc 33.4 g/dl (31.0-36.0); Mean Corpuscular Volume 83.9 fL (80.0-98.0); Mean Platelet Volume 10.6 fL (9.4-12.4); Platelet Count 256 X10*3/uL (160-400); Red Blood Count 5.64 X10*6/uL (4.60-5.80); Red Cell Distribution Width 13.4 % (11.0-16.0); White Blood Count 7.4 X10*3/uL (4.8-10.8)
[2022-10-30 10:51] LABS: Appearance Urine Clear; Color Urine Yellow; Glucose Urine UA Negative (Negative); Leukocyte Esterase Urine Negative (Negative); Nitrite Urine Negative (Negative); PH 7.5 (5.0-9.0); Urine Blood Negative (Negative); Urine Ketones Negative (Negative); Urine Protein Negative (Neg-Trace)
[2022-10-30 11:20] LABS: Alanine Aminotransferase 26 U/L (0-40); Albumin Level 4.3 g/dL (3.5-5.0); Alkaline Phosphatase 95 U/L (39-117); Anion Gap 12 (12-20); Aspartate Amino Transferase 20 U/L (5-37); Blood Urea Nitrogen 16 mg/dL (9-16); Calcium 9.5 mg/dL (8.4-10.2); Carbon Dioxide 26 mmol/L (22-29); Chloride 107 mmol/L (96-108); Cholesterol 211 mg/dL; Estimated Glomerular Filt Rate > 60; Glucose Fasting 99 mg/dL (60-99); HDL Cholesterol 52 mg/dL; LDL Cholesterol Calculated 123 mg/dl; Potassium 4.2 mmol/L (3.3-5.1); Sodium 141 mmol/L (135-145); Total Protein 6.8 g/dL (6.5-8.0); Triglycerides 184 mg/dL
[2022-10-30 11:36] LABS: TSH reflex Free T4 2.38 uIU/mL (0.32-4.0)
== END 2022-10-30 09:19 | disposition home or self-care (01) ==
LOC: HO.WFDLDS 09:18
PROVIDERS: Visit Provider Hospitalist
DX: Z00.00 Encounter for general adult medical examination without abnormal findings (principal); Z13.89 Encounter for screening for other disorder; Z20.2 Contact with and (suspected) exposure to infections with a predominantly sexual mode of transmission
CPT/HCPCS: 36415; 80053; 80061; 81003; 84443; 85027

== ENCOUNTER 2023-10-07 08:56 | Outpatient (AMB) | payer OTHER, SELFPAY ==
[2023-10-07 09:08] VITALS: BP 142/84; BMI 33.1
--- NOTE | 2023-10-07 09:08 | MHC.PC.OV ---
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 Physical Exam Intake Note: Patient here transferring from Janelle Spears, physical request Mathematics Department Chair Required: No Accompanied by: Self / Same As Patient Allergies peanut [Peanut] Allergy (Mild, Verified 10/07/23 09:23) RASH AND HIVES apple Adverse Reaction (Intermediate, Uncoded 10/07/23 09:23) Rash Medication List - Last Reconciled 10/07/23 by Priscilla Ramirez MD amlodipine 1 tab PO DAILY brimonidine-timolol 0.2-0.5 % (Combigan) 1 drp ophthalmic (eye) BID desonide 0.05% 1 appl topical BID diphenhydramine HCl (Allergy Relief (diphenhydramine)) 1-3 tabs for allergic reaction orally PRN; epinephrine (EpiPen 2-Leonidas) 0.3 mg (0.3 mL) IM Q4H PRN 3 months latanoprostene bunod 0.024% (Vyzulta) 1 drp ophthalmic (eye) QPM omeprazole 1 cap PO DAILY paroxetine HCl 10 mg PO DAILY Tobacco use date assessed: 10/07/23 Fall risk assessment: No Falls in past year Last assessed Fall Risk: 10/07/23 Dental Screening Dental Screen Date: 10/07/23 Did you have a dental visit in the last 12 months?: No Did you have a dental problem in the last 6 months where you did not have access to dental care?: No Was dental information given to patient?: Patient has dentist HPI HPI Comments History of Present Illness Details This is a 78-year-old male that comes for his physical exam. Last colonoscopy was 2008 and since he is over 75 years old no need for screening colonoscopy. No chest pain or shortness of breath. No change in bowel or bladder habits. Has mild major depression and anxiety stable with paroxetine. Blood pressure normal to elevated today and will be recheck in 3 weeks by nurse navigator. FORMERLY [facility], [facility] Medical History (Updated 10/07/23 @ 09:37 by Priscilla Ramirez MD) Screening for blood or protein in urine COVID-19 Viral pneumonia GERD (gastroesophageal reflux disease) Anxiety Hypertension Surgical History History of hemorrhoidectomy History of eye surgery Family History Father No problems noted. Mother No problems noted. Social History (Updated 10/07/23 @ 09:28 by Priscilla Ramirez MD) Household Members: Children Housing: Apartment Do you presently have visiting nurse or other home services: No Alcohol intake: former Patient Tobacco Use Status: Former Tobacco user Tobacco use type: Cigarette e-Cigarette/Vaping Use: Never Used Second Hand Smoke Exposure: No service: No Current occupational status: retired Cognitive needs: No Hearing needs: No Vision needs: No Questionnaire PHQ-9 Over the last 2 weeks, how often have you been bothered by any of the following problems? 1. Little interest or pleasure in doing things: not at all 2. Feeling down, depressed, or hopeless: not at all 3. Trouble falling or staying asleep, or sleeping too much: not at all 4. Feeling tired or having little energy: not at all 5. Poor appetite or overeating: not at all 6. Feeling bad about yourself - or that you are a failure or have let yourself or your family down: not at all 7. Trouble concentrating on things, such as reading the newspaper or watching television: not at all 8. Moving or speaking so slowly that other people could have noticed. Or the opposite - being so fidgety or restless that you have been moving around a lot more than usual: not at all 9. Thoughts that you would be better off or of hurting yourself in some way: not at all Total score: 0 Depression Screening Interpretation: Negative Depression Screening Done: Yes 24877 - PHQ-9 Billing: Yes Source: Developed by Drs. Petar Mariscal, Palak Gordon, Lonnie Glover and colleagues, with an educational kennedy from [employer]. Thrive Questionnaire Date Thrive assessed: 10/07/23 I am a: Patient What is your living situation today?: I have a steady place to live Within the past 12 months, did the food you bought not last and you didn't have the money to get more?: Never true Within the past 12 months, did you worry whether your food would run out before you got money to buy more?: Never true Do you have trouble paying for medicines?: No Do you have trouble getting transportation to medical appointments?: No Do you have trouble paying your heating and electricity bill?: No Do you have trouble taking care of your child, family member or friend?: No Do you have trouble with day-to-day activities such as bathing, preparing meals, shopping, managing finances, etc.?: No Are you currently unemployed and looking for a job?: No Are you interested in more education?: No Please select the resources that you would like help with: None Currently or been in a relationship where the following occur: no concerns reported THRIVE Score: 0 AUDIT C Alcohol Use Questionnaire (AUDIT-C) 1. How often do you have a drink containing alcohol?: Never Total Score: 0 Score Reviewed/Action Taken: No RTENT-7 AMB Questionnaire TRENT-7 Date TRENT - 7 assessed: 10/07/23 Feeling nervous, anxious, or on edge: 0 = Not at all Not being able to stop or control worryin = Not at all Worrying too much about different things: 0 = Not at all Trouble relaxin = Not at all Being so restless that it is hard to sit still: 0 = Not at all Becoming easily annoyed or irritable: 0 = Not at all Feeling afraid as if something awful might happen: 0 = Not at all Total TRENT-7 score (0-4 normal; 5-9 mild; 10-14 moderate; 15-21 severe): 0 Source: Developed by Drs. Petar Mariscal, Palak Gordon, Lonnie Glover and colleagues, with an educational kennedy from [employer]. TRENT-7 Assessment Billing TRENT-7 Assessment Tool: TRENT-7 Assessment 16446 Review of Systems Const All systems reviewed & are unremarkable except as noted in HPI and below Eyes Reports no additional complaints, Denies change in vision and Denies other visual disturbances Card Denies chest pain at rest, Denies chest pain with activity, Denies edema, Denies irregular heart rhythm, Denies claudication, Denies dyspnea, Denies dyspnea on exertion, Denies orthopnea, Denies paroxysmal nocturnal dyspnea and Denies slow heart rate Resp Denies cough, Denies dyspnea and Denies dyspnea on exertion GI Denies abdominal pain, Denies change in bowel habits, Denies excessive flatus, Denies nausea and Denies vomiting Denies urinary hesitancy, Denies urinary incontinence and Denies urinary urgency Musc Denies abnormal gait, Denies atrophy, Denies deformity and Denies limited range of motion Skin/Breast Denies bleeding lesions, Denies changing lesions and Denies rash Neuro Denies abnormal gait and Denies lack of coordination Physical exam (Primary Care) Vital Signs: Last Vital Signs BP 142/84 H 10/07/23 09:08 BMI result Body Mass Index 33.1 Tobacco/Smoking Status: Tobacco use Status Tobacco use date assessed 10/07/23 10/07/23 09:17 Patient Tobacco Use Status Former Tobacco user 10/07/23 09:17 Tobacco use type Cigarette 10/07/23 09:17 e-Cigarette/Vaping Use Never Used 10/07/23 09:17 PHQ-9: PHQ-9 Score PHQ-9: Total score 0 10/07/23 09:17 Depression Screening Interpretation: Negative Thrive Assessment: Date of Thrive Assessment Date Thrive assessed 10/07/23 10/07/23 09:17 Currently or been in a relationship where the following occur: no concerns reported Const Orientation/consciousness: patient oriented x3 HENKY Head: Yes normal to inspection, Yes normocephalic and Yes atraumatic Ears: external ears normal Eyes General: appearance normal, both eyes and all related structures Eyelids: Yes eyelids normal Conjunctivae: conjunctivae normal Neck Neck: Yes normal visual inspection and Yes supple Resp Effort & Inspection: normal respiratory effort Auscultation: clear to auscultation bilaterally Cardio Jugular venous distension: no JVD Rate: regular rate Rhythm: regular rhythm Heart sounds: S1 normal heart sound present and S2 normal heart sound present GI Inspection: Yes normal to inspection Palpation (GI): Soft to palpation and nontender Auscultation: normal bowel sounds Skin General skin exam: no rashes or lesions noted Neuro General: patient oriented x3 and no focal motor deficits Extrem General: Yes full ROM Psych Appearance: grossly normal Assessment and Plan Assessment & Plan (1) Physical exam: Code(s): Z00.00 - Encounter for general adult medical examination without abnormal findings Plan: Repeat in a year. (2) Mild major depression: Code(s): F32.0 - Major depressive disorder, single episode, mild Plan: Continue paroxetine. Orders: Orders Comprehensive [place]. Panel Fast Today Z00.00 - Encounter for general adult medical examination without abnormal findings Lipid Panel Today E78.5 - Hyperlipidemia, unspecified Coding Level of Care Code Est Pt Prev Care >65y(31483) Diagnoses Physical exam Z00.00 Mild major depression F32.0 Additional Codes TRENT-7 Assessment Billing - TRENT-7 Assessment Tool: TRENT-7 Assessment 27514 ([id number]) Time Spent (min) 31
[2023-10-07 09:39] VITALS: BP 140/88
== END 2023-10-07 09:36 | disposition home or self-care (01) ==
PROVIDERS: PCP Hospitalist; Visit Provider Internal Medicine
DX: Z00.00 Encounter for general adult medical examination without abnormal findings (principal); F32.0 Major depressive disorder, single episode, mild; Z87.891 Personal history of nicotine dependence
CPT/HCPCS: 99397

== ENCOUNTER 2023-11-05 08:13 | Outpatient (REF) | payer OTHER, SELFPAY ==
[2023-11-05 10:09] LABS: Alanine Aminotransferase 23 U/L (0-40); Albumin Level 4.2 g/dL (3.5-5.0); Alkaline Phosphatase 87 U/L (39-117); Anion Gap 11 (12-20); Aspartate Amino Transferase 18 U/L (5-37); Bilirubin Total 0.7 mg/dL (0.0-1.0); Blood Urea Nitrogen 12 mg/dL (9-16); Calcium 9.8 mg/dL (8.4-10.2); Carbon Dioxide 30 mmol/L (22-29); Chloride 106 mmol/L (96-108); Cholesterol 202 mg/dL (<200); Estimated Glomerular Filt Rate > 60; Glucose Fasting 114 mg/dL (60-99); HDL Cholesterol 53 mg/dL (>40); LDL Cholesterol Calculated 112 mg/dL (<100); Potassium 4.5 mmol/L (3.3-5.1); Sodium 142 mmol/L (135-145); Total Protein 7.3 g/dL (6.5-8.0); Triglycerides 187 mg/dL (<150)
== END 2023-11-05 08:14 | disposition home or self-care (01) ==
LOC: HO.LAB 08:13
PROVIDERS: PCP Internal Medicine; Visit Provider Internal Medicine
DX: Z00.00 Encounter for general adult medical examination without abnormal findings (principal); E78.5 Hyperlipidemia, unspecified
CPT/HCPCS: 36415; 80053; 80061

== ENCOUNTER 2024-04-08 10:31 | Outpatient (AMB) | payer OTHER, SELFPAY ==
--- NOTE | 2024-04-08 10:38 | MHC.PC.OV ---
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 Accompanied by: Self / Same As Patient Allergies peanut [Peanut] Allergy (Mild, Verified 04/08/24 10:47) RASH AND HIVES apple Adverse Reaction (Intermediate, Uncoded 04/08/24 10:47) Rash Medication List - Last Reconciled 04/08/24 by Priscilla Ramirez MD amlodipine 5 mg PO DAILY 90 days brimonidine-timolol 0.2-0.5 % (Combigan) 1 drp ophthalmic (eye) BID desonide 0.05% 1 appl topical BID diphenhydramine HCl (Allergy Relief (diphenhydramine)) 1-3 tabs for allergic reaction orally PRN; epinephrine (EpiPen 2-Leonidas) 0.3 mg (0.3 mL) IM Q4H PRN 3 months indomethacin 50 mg PO BID 30 days latanoprostene bunod 0.024% (Vyzulta) 1 drp ophthalmic (eye) QPM omeprazole 1 cap PO DAILY paroxetine HCl 10 mg PO DAILY Tobacco use date assessed: 10/07/23 Fall risk assessment: No Falls in past year Last assessed Fall Risk: 04/08/24 Dental Screening Dental Screen Date: 10/07/23 HPI HPI Comments History of Present Illness Details This is a 78-year-old male with GERD, mild major depression, hypertension and dyslipidemia that comes today for follow-up on his conditions. GERD stable with PPIs. Depression well controlled with paroxetine. Blood pressure is elevated and he declines to increase amlodipine from 5 mg to 10 mg or add a new medication. Blood pressure will be recheck in 3 weeks by nurse navigator. He is aware that elevated blood pressure can cause heart attack and strokes. Has elevated cholesterol but does not want to take atorvastatin and want to do a low-cholesterol diet. Lipid panel will be recheck in 3 months. FOR[facility]LY [facility] Medical History (Updated 04/08/24 @ 12:17 by Priscilla Ramirez MD) Screening for blood or protein in urine COVID-19 Viral pneumonia GERD (gastroesophageal reflux disease) Anxiety Hypertension Surgical History History of hemorrhoidectomy History of eye surgery Family History Father No problems noted. Mother No problems noted. Social History Household Members: Children Housing: Apartment Do you presently have visiting nurse or other home services: No Alcohol intake: former Patient Tobacco Use Status: Former Tobacco user Tobacco use type: Cigarette e-Cigarette/Vaping Use: Never Used Second Hand Smoke Exposure: No service: No Current occupational status: retired Cognitive needs: No Hearing needs: No Vision needs: No Questionnaire Thrive Questionnaire Date Thrive assessed: 10/07/23 Are you currently unemployed and looking for a job?: Yes TRENT-7 AMB Questionnaire TRENT-7 Date TRENT - 7 assessed: 10/07/23 Source: Developed by Drs. Petar Mariscal, Palak Gordon, Lonnie Glover and colleagues, with an educational knenedy from [employer]. Review of Systems Const All systems reviewed & are unremarkable except as noted in HPI and below Card Denies chest pain at rest, Denies chest pain with activity, Denies edema, Denies irregular heart rhythm, Denies claudication, Denies dyspnea, Denies dyspnea on exertion, Denies orthopnea, Denies paroxysmal nocturnal dyspnea and Denies slow heart rate Resp Denies cough, Denies dyspnea and Denies dyspnea on exertion GI Denies abdominal pain, Denies change in bowel habits, Denies excessive flatus, Denies nausea and Denies vomiting Denies urinary hesitancy, Denies urinary incontinence and Denies urinary urgency Musc Denies atrophy, Denies deformity and Denies limited range of motion Physical exam (Primary Care) Vital Signs: Last Vital Signs BP 152/80 H 04/08/24 10:39 BMI result Body Mass Index 31.3 BMI Assessment/Plan discussion: High BMI High, discussed plan: lifestyle, weight reduction, dietary and physical activity Tobacco/Smoking Status: Tobacco use Status Tobacco use date assessed 10/07/23 04/08/24 10:43 Patient Tobacco Use Status Former Tobacco user 04/08/24 10:43 Tobacco use type Cigarette 04/08/24 10:43 e-Cigarette/Vaping Use Never Used 04/08/24 10:43 Thrive Assessment: Date of Thrive Assessment Date Thrive assessed 10/07/23 04/08/24 10:43 Resp Effort & Inspection: normal respiratory effort Auscultation: clear to auscultation bilaterally Cardio Jugular venous distension: no JVD Rate: regular rate Rhythm: regular rhythm Heart sounds: S1 normal heart sound present and S2 normal heart sound present Extrem General: Yes full ROM Assessment and Plan Assessment & Plan (1) Essential hypertension: Code(s): I10 - Essential (primary) hypertension Plan: Continue amlodipine. Blood pressure will be recheck in 3 weeks by nurse navigator. Blood pressure goal is equal or less than 130/80. (2) Mild major depression: Code(s): F32.0 - Major depressive disorder, single episode, mild Plan: Continue paroxetine. (3) Dyslipidemia: Code(s): E78.5 - Hyperlipidemia, unspecified Plan: Continue low-cholesterol diet. Repeat lipid panel in 3 months. (4) GERD (gastroesophageal reflux disease): Code(s): K21.9 - Gastro-esophageal reflux disease without esophagitis Plan: Continue PPIs. Orders: Orders Lipid Panel Today E78.5 - Hyperlipidemia, unspecified Comprehensive [place]. Panel Fast Today I10 - Essential (primary) hypertension Coding Level of Care Code Est Pt Level 4 (39744) Complex EM visit Add On G2211 Diagnoses Essential hypertension I10 Mild major depression F32.0 Dyslipidemia E78.5 GERD (gastroesophageal reflux disease) K21.9 Time Spent (min) 22
[2024-04-08 10:39] VITALS: BP 152/80; BMI 31.3
[2024-04-08 12:13] VITALS: BP 148/78
== END 2024-04-08 11:00 | disposition home or self-care (01) ==
PROVIDERS: PCP Internal Medicine; Visit Provider Internal Medicine
DX: I10 Essential (primary) hypertension (principal); F32.0 Major depressive disorder, single episode, mild; E78.5 Hyperlipidemia, unspecified; K21.9 Gastro-esophageal reflux disease without esophagitis

== ENCOUNTER → 2024-04-08 10:31 | Outpatient (BNVA) | payer OTHER, SELFPAY | PROVIDERS: PCP Internal Medicine; Visit Provider Internal Medicine | DX: I10 Essential (primary) hypertension (principal); F32.0 Major depressive disorder, single episode, mild; E78.5 Hyperlipidemia, unspecified; K21.9 Gastro-esophageal reflux disease without esophagitis; Z79.899 Other long term (current) drug therapy ==

== ENCOUNTER 2024-04-21 10:20 | Outpatient (AMB) | payer OTHER, SELFPAY ==
--- NOTE | 2024-04-21 10:29 | MHC.PC.OV ---
Intake Visit Reasons: Flu shot Allergies peanut [Peanut] Allergy (Mild, Verified 04/08/24 10:47) RASH AND HIVES apple Adverse Reaction (Intermediate, Uncoded 04/08/24 10:47) Rash Tobacco use date assessed: 10/07/23 Dental Screening Dental Screen Date: 10/07/23 [facility] Medical History Screening for blood or protein in urine COVID-19 Viral pneumonia GERD (gastroesophageal reflux disease) Anxiety Hypertension Surgical History History of hemorrhoidectomy History of eye surgery Family History Father No problems noted. Mother No problems noted. Social History Household Members: Children Housing: Apartment Do you presently have visiting nurse or other home services: No Alcohol intake: former Patient Tobacco Use Status: Former Tobacco user Tobacco use type: Cigarette e-Cigarette/Vaping Use: Never Used Second Hand Smoke Exposure: No service: No Current occupational status: retired Cognitive needs: No Hearing needs: No Vision needs: No Questionnaire Thrive Questionnaire Date Thrive assessed: 10/07/23 Are you currently unemployed and looking for a job?: Yes TRENT-7 AMB Questionnaire TRENT-7 Date TRENT - 7 assessed: 10/07/23 Source: Developed by Drs. Petar Mariscal, Palak Gordon, Lonnie Glover and colleagues, with an educational kennedy from [employer]. Physical exam (Primary Care) Tobacco/Smoking Status: Tobacco use Status Tobacco use date assessed 10/07/23 04/21/24 10:31 Patient Tobacco Use Status Former Tobacco user 04/21/24 10:31 Tobacco use type Cigarette 04/21/24 10:31 e-Cigarette/Vaping Use Never Used 04/21/24 10:31 Thrive Assessment: Date of Thrive Assessment Date Thrive assessed 10/07/23 04/21/24 10:31 Office Procedures Flu Questionnaire Does the patient have a severe egg allergy?: No Does the patient have severe life threatening allergies?: No Does the patient have a fever or illness today?: No Has the patient ever had Guillain-[place] Syndrome?: No Has the patient ever had any past reaction to a flu shot?: No Immunizations Fluarix Triv [id number] (PF) 45 mcg (15 mcg x 3)/0.5 mL IM syringe Performing Provider: Priscilla Ramirez MD [facility] Administered by: Haylie Pollard LPN on 04/21/24 10:29 Dose Route Admin Location Dispensed Lot Number Expiration Date [facility] Sericulturist 0.5 mL IM Right Deltoid 0.5 mL [id number] 01/18/25 13521-988-81 [employer] VIS Given Date VIS Provided VIS Publication Date 04/21/24 Single Vaccine 21 Eligibility Eligibility Date Funding Source Not [facility] Eligible 04/21/24 Private Coding Assessment & Plan Assessment & Plan Orders: Orders Influenza [id number] Immunization Today Z23 - Encounter for immunization
--- NOTE | 2024-04-21 10:29 | AM.OFFVISNUR ---
Intake Visit Reasons: Flu shot Allergies peanut [Peanut] Allergy (Mild, Verified 04/08/24 10:47) RASH AND HIVES apple Adverse Reaction (Intermediate, Uncoded 04/08/24 10:47) Rash Office Procedures Flu Questionnaire Does the patient have a severe egg allergy?: No Does the patient have severe life threatening allergies?: No Does the patient have a fever or illness today?: No Has the patient ever had Guillain-[place] Syndrome?: No Has the patient ever had any past reaction to a flu shot?: No Assessment & Plan Assessment & Plan Orders: Orders Influenza [id number] Immunization Today Z23 - Encounter for immunization Medications: New Fluarix Triv [id number] (PF) (flu vacc [id number] 6mos up(PF)) 0.5 mL IM ONCE 0.5 mL 0RF NS Z23 - Encounter for immunization
== END 2024-04-21 10:30 | disposition home or self-care (01) ==
PROVIDERS: PCP Internal Medicine; Visit Provider Internal Medicine
DX: Z23 Encounter for immunization (principal)

== ENCOUNTER → 2024-04-21 10:20 | Outpatient (BNVA) | payer OTHER, SELFPAY | PROVIDERS: PCP Internal Medicine; Visit Provider Internal Medicine | DX: Z23 Encounter for immunization (principal) | CPT/HCPCS: 90471; 90656 ==

== ENCOUNTER → 2024-04-30 13:37 | Outpatient (BNVA) | payer OTHER, SELFPAY | PROVIDERS: PCP Internal Medicine ==

== ENCOUNTER 2024-05-27 09:13 | Outpatient (REF) | payer MEDICARE, SELFPAY ==
[2024-05-27 11:47] LABS: Alanine Aminotransferase 22 U/L (0-40); Albumin Level 4.1 g/dL (3.5-5.0); Alkaline Phosphatase 94 U/L (39-117); Anion Gap 10 (12-20); Aspartate Amino Transferase 23 U/L (5-37); Blood Urea Nitrogen 14 mg/dL (9-16); Calcium 9.7 mg/dL (8.4-10.2); Carbon Dioxide 27 mmol/L (22-29); Chloride 107 mmol/L (96-108); Cholesterol 189 mg/dL (<200); Estimated Glomerular Filt Rate > 60; Glucose Fasting 94 mg/dL (60-99); HDL Cholesterol 53 mg/dL (>40); LDL Cholesterol Calculated 111 mg/dL (<100); Potassium 4.2 mmol/L (3.3-5.1); Sodium 140 mmol/L (135-145); Total Protein 7.1 g/dL (6.5-8.0); Triglycerides 125 mg/dL (<150)
== END 2024-05-27 09:14 | disposition home or self-care (01) ==
LOC: HO.LAB 09:13
PROVIDERS: PCP Internal Medicine; Visit Provider Internal Medicine
DX: I10 Essential (primary) hypertension (principal); E78.5 Hyperlipidemia, unspecified
CPT/HCPCS: 36415; 80053; 80061

== ENCOUNTER 2024-10-12 10:01 | Outpatient (AMB) | payer OTHER, SELFPAY ==
--- NOTE | 2024-10-12 10:17 | A.OFFPC_ITS ---
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 Accompanied by: Self / Same As Patient Allergies peanut [Peanut] Allergy (Mild, Verified 10/12/24 10:34) RASH AND HIVES apple Adverse Reaction (Intermediate, Uncoded 10/12/24 10:34) Rash Medication List - Last Reconciled 10/12/24 by Priscilla Ramirez MD amlodipine 5 mg PO DAILY 90 days brimonidine-timolol 0.2-0.5 % (Combigan) 1 drp ophthalmic (eye) BID desonide 0.05% 1 appl topical BID diphenhydramine HCl (Allergy Relief (diphenhydramine)) 1-3 tabs for allergic reaction orally PRN; epinephrine (EpiPen 2-Leonidas) 0.3 mg (0.3 mL) IM Q4H PRN 3 months indomethacin 50 mg PO BID 30 days latanoprostene bunod 0.024% (Vyzulta) 1 drp ophthalmic (eye) QPM omeprazole 1 cap PO DAILY paroxetine HCl 10 mg PO DAILY Tobacco use date assessed: 10/12/24 Fall risk assessment: No Falls in past year Last assessed Fall Risk: 10/12/24 Dental Screening Dental Screen Date: 10/12/24 Did you have a dental visit in the last 12 months?: Yes Did you have a dental problem in the last 6 months where you did not have access to dental care?: No Was dental information given to patient?: Patient has dentist HPI HPI Comments History of Present Illness Details The patient is a 79-year-old male presenting with complaints of right ankle pain and left knee pain, which are significant concerns during his annual physical examination. Pain in the right ankle began approximately one week prior and limits mobility, while the left knee pain has been present but does not restrict walking. Last week, both issues flared significantly. Over a year ago, the patient experienced a contusion to the affected area but notes that current symptoms are again exacerbated without recent trauma. The management of these issues has included indomethacin for pain relief, though usage is minimized due to potential side effects. The patient also experimented with an alcohol-based home remedy that reportedly worsened the symptoms. He does not report current or recent chest pain, difficulty breathing, fever, or gastrointestinal abnormalities. His long-term conditions include hypertension, treated with amlodipine, and depression with anxiety, well-controlled with a PHQ-9 score of 0 through paroxetine. His history of regularly scheduled colonoscopies halted after 2008 as per age-specific guidelines. - Administered Shingles (Herpes Zoster) Vaccine post-age 50 - PHQ-9 assessment: score of 0 indicatin g well-controlled depression with anxiety - Regular monitoring of blood pressure f or hypertension - Colonoscopy was last conducted in 2008 ; screening ceased as per age guidelines post-75 years [facility] Medical History Screening for blood or protein in urine COVID-19 Viral pneumonia GERD (gastroesophageal reflux disease) Anxiety Hypertension Surgical History History of hemorrhoidectomy History of eye surgery Family History Father No problems noted. Mother No problems noted. Social History Household Members: Children Housing: Apartment Do you presently have visiting nurse or other home services: No Alcohol intake: former Patient Tobacco Use Status: Former Tobacco user Tobacco use type: Cigarette e-Cigarette/Vaping Use: Never Used Second Hand Smoke Exposure: No service: No Current occupational status: retired Cognitive needs: No Hearing needs: No Vision needs: No Questionnaire PHQ-9 Over the last 2 weeks, how often have you been bothered by any of the following problems? 1. Little interest or pleasure in doing things: not at all 2. Feeling down, depressed, or hopeless: not at all 3. Trouble falling or staying asleep, or sleeping too much: not at all 4. Feeling tired or having little energy: not at all 5. Poor appetite or overeating: not at all 6. Feeling bad about yourself - or that you are a failure or have let yourself or your family down: not at all 7. Trouble concentrating on things, such as reading the newspaper or watching television: not at all 8. Moving or speaking so slowly that other people could have noticed. Or the opposite - being so fidgety or restless that you have been moving around a lot more than usual: not at all 9. Thoughts that you would be better off or of hurting yourself in some way: not at all Total score: 0 Depression Screening Interpretation: Negative Depression Screening Done: Yes 30305 - PHQ-9 Billing: Yes Source: Developed by Drs. Petar Mariscal, Palak Gordon, Lonnie Glover and colleagues, with an educational kennedy from [employer]. Thrive Questionnaire Date Thrive assessed: 10/12/24 I am a: Patient What is your living situation today?: I have a steady place to live Within the past 12 months, did the food you bought not last and you didn't have the money to get more?: Never true Within the past 12 months, did you worry whether your food would run out before you got money to buy more?: Never true Do you have trouble paying for medicines?: No Do you have trouble getting transportation to medical appointments?: No Do you have trouble paying your heating and electricity bill?: No Do you have trouble taking care of your child, family member or friend?: No Do you have trouble with day-to-day activities such as bathing, preparing meals, shopping, managing finances, etc.?: No Are you currently unemployed and looking for a job?: No Are you interested in more education?: No Please select the resources that you would like help with: None Currently or been in a relationship where the following occur: No concerns reported THRIVE Score: 0 AUDIT C Alcohol Use Questionnaire (AUDIT-C) 1. How often do you have a drink containing alcohol?: Never Total Score: 0 Score Reviewed/Action Taken: No TRENT-7 AMB Questionnaire TRENT-7 Date TRENT - 7 assessed: 10/12/24 Feeling nervous, anxious, or on edge: 0 = Not at all Not being able to stop or control worryin = Not at all Worrying too much about different things: 0 = Not at all Trouble relaxin = Not at all Being so restless that it is hard to sit still: 0 = Not at all Becoming easily annoyed or irritable: 0 = Not at all Feeling afraid as if something awful might happen: 0 = Not at all Total TRENT-7 score (0-4 normal; 5-9 mild; 10-14 moderate; 15-21 severe): 0 Source: Developed by Drs. Petar Mariscal, Palak Gordon, Lonnie Glover and colleagues, with an educational kennedy from [employer]. TRENT-7 Assessment Billing TRENT-7 Assessment Tool: TRENT-7 Assessment 80316 Review of Systems Const All systems reviewed & are unremarkable except as noted in HPI and below Card Denies chest pain at rest, Denies chest pain with activity, Denies edema, Denies irregular heart rhythm, Denies claudication, Denies dyspnea, Denies dyspnea on exertion, Denies orthopnea, Denies paroxysmal nocturnal dyspnea and Denies slow heart rate Resp Denies cough, Denies dyspnea and Denies dyspnea on exertion GI Denies abdominal pain, Denies change in bowel habits, Denies excessive flatus, Denies nausea and Denies vomiting Musc Denies abnormal gait and Reports arthralgias Neuro Denies abnormal gait, Denies behavioral changes and Denies lack of coordination Psych Denies behavioral changes Endo Denies cold intolerance Speedy/Lymph Denies easy bleeding and Denies easy bruising Aller/Immun Denies urticaria Physical exam (Primary Care) Vital Signs: Last Vital Signs BP 132/70 10/12/24 10:19 BMI result Body Mass Index 32.1 BMI Assessment/Plan discussion: High BMI High, discussed plan: lifestyle, weight reduction, dietary and physical activity Tobacco/Smoking Status: Tobacco use Status Tobacco use date assessed 10/12/24 10/12/24 10:34 Patient Tobacco Use Status Former Tobacco user 10/12/24 10:23 Tobacco use type Cigarette 10/12/24 10:23 e-Cigarette/Vaping Use Never Used 10/12/24 10:23 PHQ-9: PHQ-9 Score PHQ-9: Total score 0 10/12/24 12:34 Depression Screening Interpretation: Negative Thrive Assessment: Date of Thrive Assessment Date Thrive assessed 10/12/24 10/12/24 10:23 Currently or been in a relationship where the following occur: No concerns reported HENMT Head: Yes normal to inspection, Yes normocephalic and Yes atraumatic Ears: external ears normal Eyes General: appearance normal, both eyes and all related structures Eyelids: Yes eyelids normal Conjunctivae: conjunctivae normal Neck Neck: Yes normal visual inspection and Yes supple Resp Effort & Inspection: normal respiratory effort Auscultation: clear to auscultation bilaterally Cardio Jugular venous distension: no JVD Rate: regular rate Rhythm: regular rhythm Heart sounds: S1 normal heart sound present and S2 normal heart sound present GI Inspection: Yes normal to inspection Palpation (GI): Soft to palpation and nontender Auscultation: normal bowel sounds Skin General skin exam: no rashes or lesions noted Neuro General: no focal motor deficits Extrem General: Yes full ROM Psych Appearance: grossly normal Coding Level of Care Code Est Pt Level 3 (50167) Est Pt Prev Care >65y(17675) Diagnoses Physical exam Z00.00 Mild major depression F32.0 Left knee pain M25.562 Right foot pain M79.671 Additional Codes TRENT-7 Assessment Billing - TRENT-7 Assessment Tool: TRENT-7 Assessment 78137 ([id number]) PHQ-9 - 16550 - PHQ-9 Billing: Yes ([id number]) Time Spent (min) 33 Assessment & Plan Assessment & Plan (1) Physical exam: Code(s): Z00.00 - Encounter for general adult medical examination without abnormal findings Category: Medical (2) Mild major depression: Code(s): F32.0 - Major depressive disorder, single episode, mild Category: Medical (3) Left knee pain: Code(s): M25.562 - Pain in left knee Category: Medical (4) Right foot pain: Code(s): M79.671 - Pain in right foot Category: Medical Plan Regular physical activities, such as daily walking, are encouraged for general health maintenance.: Patient was informed and verbally consented to the use of an ambient scribe for clinic note documentation during this visit. I discussed the likelihood of continued management of pain in the right ankle and left knee via analgesics and the possible need for orthopedic follow-up. Imaging, such as X-rays, might be needed to further evaluate these issues. For depression with anxiety and hypertension, I advised that the current management plan is effective and should continue. I explained the rationale behind not pursuing further colonoscopy screening at his age. We reviewed health maintenance regarding routine exercise and encouraged a sustainable regimen. I also reassured the patient about the stability of his blood pressure and mental health condition, highlighting the benefits of maintaining current practices. Orders: Orders XR foot RT 2V Today M79.671 - Pain in right foot Comprehensive [place]. Panel Fast Today Z00.00 - Encounter for general adult medi eduin examination without abnormal findings XR knee LT 2V Today M25.562 - Pain in left knee Lipid Panel Today Z00.00 - Encounter for general adult medical examination without abnormal findings Referrals Orthopedics Referral M25.562 - Pain in left knee Medications: Changed From desonide 0.05% 1 appl topical BID To desonide 0.05% 1 appl topical BID 2 weeks 15 grams 1RF Patient Instructions: - Continue using prescribed pain medications sparingly - Follow up with orthopedic evaluation if pain persists beyond management capability - Maintain current medication regimen for depression and hypertension - Engage in regular physical exercise as conditions allow - Do not pursue another colonoscopy based on age-specific guidelines - Report any significant change in symptoms or overall health condition
[2024-10-12 10:19] VITALS: BP 132/70; BMI 32.1
== END 2024-10-12 10:51 | disposition home or self-care (01) ==
LOC: HO.HMCH 10:01
PROVIDERS: PCP Internal Medicine; Visit Provider Internal Medicine
DX: Z00.00 Encounter for general adult medical examination without abnormal findings (principal); F32.0 Major depressive disorder, single episode, mild; M25.562 Pain in left knee; M79.671 Pain in right foot

== ENCOUNTER → 2024-10-12 10:01 | Outpatient (BNVA) | payer OTHER, SELFPAY | PROVIDERS: PCP Internal Medicine; Visit Provider Internal Medicine | DX: Z00.01 Encounter for general adult medical examination with abnormal findings (principal); M25.562 Pain in left knee; M79.671 Pain in right foot; F32.0 Major depressive disorder, single episode, mild | CPT/HCPCS: 96127 ==

== ENCOUNTER 2024-10-14 08:55 | Outpatient (REF) | payer MEDICARE, SELFPAY ==
--- NOTE | ~2024-10-14 | XR_ITS ---
CLINICAL HISTORY: M79.671 - Pain in right foot 3 view right foot Comparison: None Findings: No fractures or dislocations. No significant loss of joint space, osteophytes, or erosions. No ankle effusion. No radiopaque foreign body. 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 IMPRESSION: 1. No acute findings. This document has been electronically signed by: Wilton Guthrie MD on 10/15/2024 10:16:20
--- NOTE | ~2024-10-14 | XR_ITS ---
CLINICAL HISTORY: M25.562 - Pain in left knee 2 view left knee Comparison: None Findings: Bones intact. No dislocations. 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 There is no joint space narrowing. No joint effusion. No radiopaque foreign body. 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 There is no joint space narrowing. This document has been electronically signed by: Wilton Guthrie MD on 10/15/2024 10:18:00
[2024-10-14 10:16] LABS: Albumin Level 4.3 g/dL (3.5-5.0); Alkaline Phosphatase 103 U/L (39-117); Anion Gap 9 (12-20); Aspartate Amino Transferase 26 U/L (5-37); Bilirubin Total 0.7 mg/dL (0.0-1.0); Blood Urea Nitrogen 17 mg/dL (9-16); Calcium 9.4 mg/dL (8.4-10.2); Carbon Dioxide 29 mmol/L (22-29); Chloride 107 mmol/L (96-108); Cholesterol 211 mg/dL (<200); Estimated Glomerular Filt Rate > 60; Glucose Fasting 104 mg/dL (60-99); HDL Cholesterol 62 mg/dL (>40); LDL Cholesterol Calculated 123 mg/dL (<100); Sodium 141 mmol/L (135-145); Total Protein 7.3 g/dL (6.5-8.0); Triglycerides 133 mg/dL (<150)
[2024-10-14 10:50] LABS: Alanine Aminotransferase 32 U/L (0-40)
== END 2024-10-14 08:56 | disposition home or self-care (01) ==
LOC: HO.LAB 08:55
PROVIDERS: PCP Internal Medicine; Visit Provider Internal Medicine
DX: Z00.00 Encounter for general adult medical examination without abnormal findings (principal); M79.671 Pain in right foot; M25.562 Pain in left knee
CPT/HCPCS: 36415; 73560; 73620; 80053; 80061

== ENCOUNTER → 2024-10-14 09:11 | Outpatient (BNV) | payer MEDICARE, SELFPAY | PROVIDERS: PCP Internal Medicine; Visit Provider Radiology Diagnostic Radiology | DX: M79.671 Pain in right foot (principal) | CPT/HCPCS: 73560; 73620 ==

== ENCOUNTER 2024-12-21 08:34 | Outpatient (REF) | payer MEDICARE, SELFPAY ==
--- NOTE | ~2024-12-21 | XR_ITS ---
EXAMINATION: XR KNEE, LEFT CLINICAL INFORMATION: M25.562 - Pain in left knee COMPARISON: 10/14/2024. TECHNIQUE: AP view bilateral knees standing, and patellofemoral views left knee. FINDINGS: Right Knee: Normal alignment. No fracture or dislocation. Diffuse chondrocalcinosis in the medial and lateral compartments. Preserved joint spaces. Normal soft tissues. Left Knee: No fracture, dislocation, or suspicious bone lesion. Chondrocalcinosis in the medial lateral compartments. Joint spaces are preserved. Normal knee and patellar alignment. Normal soft tissues. XR/XR knee LT 2V IMPRESSION: 1. Diffuse chondrocalcinosis of BOTH knees, with grossly preserved joint spaces. Electronically signed by: Sanjay Jung MD 12/21/2024 03:24 PM EDT
--- OUTSIDE RECORDS SUMMARY | 2024-12-22 08:58 | XMS_ITS | Clinical Summary ---
Author Organization [employer] Address [address] [place] [address] [address] [place] [address] Care Team Providers Care Simulation Developer Name Role Phone Name, Ethan ASIF Primary Care Provider [phone] Medications PARoxetine (Paxil) 10 MG tablet TOME [...] ?? Flaco JENNINGS et al. МАРИНА. 2013;310(19): 8136-0085 ?? (http://[employer]/faq/YZI358) Triglycerides 178(H) <150 mg/dL [facility] [...] ?? Flaco SS et al. МАРИНА. 2013;310(19): 8692-6442 ?? (http://[employer]/faq/UAQ478) Chol/HDLC Ratio 3.5 <5.0 (calc) [facility] [...] ?? Flaco JENNINGS et al. МАРИНА. 2013;310(19): 6196-3496 ?? (http://[employer]LiveBid/faq/ZLS733) Chol/HDLC Ratio 3.5 <5.0 (calc) [facility] [...] MD LAB BLOOD ORDERABLES Final Resul t [facility] [address] from Last 3 Months or Most Recently Relevant to Health Maintenance Insurance MEDICARE * Guarantor: Fabricio Alarcon Account Type Relation to Patient Date of Phone Billing Address Personal/Family Self [address] [phone] Care Teams Simulation Developer Relationship Specialty Start Date End Date Name, MD Ethan [address] [place] [phone] PCP - General Family Medicine 05/26/19
== END 2024-12-21 08:35 | disposition home or self-care (01) ==
LOC: HO.HOSX 08:34
PROVIDERS: Visit Provider Physician Assistant
DX: M25.562 Pain in left knee (principal); M17.12 Unilateral primary osteoarthritis, left knee
CPT/HCPCS: 73560; 99202

== ENCOUNTER 2024-12-21 09:42 | Outpatient (AMB) | payer MEDICARE, SELFPAY ==
--- NOTE | 2024-12-21 09:44 | A.OFFVIS_ITS ---
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 Patient was seen by his PCP with complaints of knee pain and was referred to orthopedics. Today patient reports his pain has been present for years that has been recently getting worse. His pain is located at the medial side of knee. He mentions a couple of months ago his knee became red and swollen with hive like bumps around his knee. Denies injury. No previous treatment. Finds relief with warm compresses, icing and topical creams. If his pain becomes intolerable he uses Aleve and indomethacin prn. Industrial Spraypainter Required: Yes Industrial Spraypainter Services: Industrial Spraypainter Offered & Declined Allergies peanut [Peanut] Allergy (Mild, Verified 12/21/24 10:00) RASH AND HIVES apple Adverse Reaction (Intermediate, Uncoded 12/21/24 10:00) Rash Medication List - Last Reconciled 12/21/24 by Kendra Cochran PA-C amlodipine 5 mg PO DAILY 90 days brimonidine-timolol 0.2-0.5 % (Combigan) 1 drp ophthalmic (eye) BID desonide 0.05% 1 appl topical BID 2 weeks diphenhydramine HCl (Allergy Relief (diphenhydramine)) 1-3 tabs for allergic reaction orally PRN; epinephrine (EpiPen 2-Leonidas) 0.3 mg (0.3 mL) IM Q4H PRN 3 months indomethacin 50 mg PO BID 30 days latanoprostene bunod 0.024% (Vyzulta) 1 drp ophthalmic (eye) QPM omeprazole 1 cap PO DAILY paroxetine HCl 10 mg PO DAILY HPI HPI WAITER/WAITRESS ROOM SERVICE-Pain in left knee: Details: 79yo male presents to the office today for left knee pain for a while, but over the last 2 months the pain was getting worse, but it is improving. He states he has been using ice and warm compress. He suspects the pain was due to an allergic reaction. Since that has resolved his pain is improving. On a daily basis, he is walking without difficulty and performing activities comfortably. [facility] Medical History Screening for blood or protein in urine COVID-19 Viral pneumonia GERD (gastroesophageal reflux disease) Anxiety Hypertension Surgical History History of hemorrhoidectomy History of eye surgery Family History Father No problems noted. Mother No problems noted. Social History Household Members: Children Housing: Apartment Do you presently have visiting nurse or other home services: No Alcohol intake: former Patient Tobacco Use Status: Former Tobacco user Tobacco use type: Cigarette e-Cigarette/Vaping Use: Never Used Second Hand Smoke Exposure: No service: No Current occupational status: retired Cognitive needs: No Hearing needs: No Vision needs: No Review of Systems Const All systems reviewed & are unremarkable except as noted in HPI and below Physical Exam Vital Signs: BMI result Body Mass Index 32.1 Const General: cooperative and no acute distress Orientation/consciousness: patient oriented x3 Resp Effort & Inspection: normal respiratory effort and able to speak in complete sentences Cardio Peripheral pulses: Peripheral pulses 2+ throughout Neuro General: patient oriented x3 Extrem Other: Left knee normal to inspection . No erythema or joint effusion, Full ROM with crepitus. Calf supple non tender, NVI. Results Reviewed Results Reviewed: Xrays were obtained in the office today and personally reviewed by me of the left knee show mild OA Assessment & Plan Assessment & Plan (1) Osteoarthritis of left knee: Code(s): M17.12 - Unilateral primary osteoarthritis, left knee Category: Medical Plan: Patient is doing significantly better since his initial referral to our office. He has since modified activities and has been using warm compress along with ice. He will continue with conservative management. If symptoms arise or there is any concerns he can contact our office and we can discuss options such as physical therapy or cortisone injections otherwise she will follow up as needed. Orders: Orders XR knee LT 2V Today M25.562 - Pain in left knee Coding Level of Care Code New Pt Level 3 (01506) Complex EM visit Add On G2211 Diagnoses Osteoarthritis of left knee M17.12
[2024-12-21 09:58] VITALS: BMI 32.1
--- OUTSIDE RECORDS SUMMARY | 2024-12-21 10:22 | XMS_ITS | Clinical Summary ---
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 Joint pain 02/24/2024 Retinal hole of right eye 10/29/2017 Carpal tunnel syndrome 09/15/2012 Degeneration of cervical intervertebral disc Contact dermatitis 12/24/2011 Hypertension 12/24/2011 Obesity 12/24/2011 Immunizations Immunization Administration Dates Next Due Hep B, adult 08/29/2011,03/22/2011,02/22/2011 Influenza High-dose Quadriva lent Preservative Free 04/06/2022 Influenza Quadrivalent Adjuvanted 04/25/2021,03/2020 Influenza injectable quadriv alent IIV4 with preservative 06/05/2017,06/19/2016,04/07/2015 Influenza, High Dose Seasona l, Preservative Free 04/14/2019,06/06/2018 Influenza, IIV3, injectable 05/07/2014 Influenza, Split (incl. lambert fied surface antigen) 04/20/2013,08/05/2012 Pneumococcal Conjugate PCV 13 07/31/2018 Pneumococcal Polysaccharide PPSV23 03/30/2020 TD (adult), 2 Lf tetanus tox oid, preservative free, adsorbed 11/17/2007 Tdap 05/22/2021 Zoster, Recombinant 02/01/2021,03/30/2020 Social History Tobacco Use Types Packs/Day Years Used Date Smoking Tobacco: Never Assessed Sex and Gender Information Value Date Recorded Sex Assigned at Male 05/21/2022 10:19 AM EDT Legal Sex Male 10:19 AM EDT Gender Identity Choose not to disclose 10:19 AM EDT Sexual Orientation Choose not to disclose 2021 10:19 AM EDT Last Filed Vital Signs Vital Sign Reading Time Taken Comments Blood Pressure 141/79 02/14/2022 12:07 AM EDT Pulse 68 02/14/2022 12:07 AM EDT Temperature - - Respiratory Rate - - Oxygen Saturation - - Inhaled Oxygen Concentration - - Weight 98.1 kg (216 lb 3.2 oz) 02/14/2022 12:07 AM EDT Height 173 cm (5' 8.11 ) 02/14/2022 12:07 AM EDT Body Mass Index 32.77 02/14/2022 12:07 AM EDT Plan of Treatment Health Maintenance Due Date Last Done Comments Depression Screening 1945 SDOH Screening 1945 Alcohol/Substance Use Screening 1959 Tobacco Screening 1959 Hepatitis C Screening 1965 RSV Patients and Patients Aged 60 years or older (1 - 1-dose 75+ series) 2022 COVID-19 Vaccine ( season) 2024 06/22/2021, 10/24/2020, 10/02/2020 Lipid Panel 02/02/2025 02/03/2020 Influenza Vaccine (Season Ended) 2025 04/06/2022, 04/25/2021, 03/30/2020, Additional history exists DTaP/Tdap/Td Vaccines (2 - Td or Tdap) 05/22/2031 05/22/2021, 11/17/2007 Hepatitis B Vaccines Completed 08/29/2011, 03/22/2011, 02/22/2011 Pneumococcal Vaccine: 50+ Years Completed 03/30/2020, 07/31/2018 Zoster Vaccines Completed 02/01/2021, 03/30/2020 HIB Vaccines Aged Out No longer eligi ble based on patient's age to complete this topic HPV Vaccines Aged Out No longer eligi ble based on patient's age to complete this topic Hepatitis A Vaccines Aged Out No long er eligible based on patient's age to complete this topic IPV Vaccines Aged Out No longer eligi ble based on patient's age to complete this topic Meningococcal B Vaccine Aged Out No l onger eligible based on patient's age to complete this topic Meningococcal Vaccine Aged Out No sirena betina eligible based on patient's age to complete this topic RSV under 20 months Aged Out No longe r eligible based on patient's age to complete this topic Rotavirus Vaccines Aged Out No longer eligible based on patient's age to complete this topic Procedures Procedure Name Priority Date/Time Associated Diagnosis Comments LIPID PANEL, STANDARD Routine 02/03/2020 8:41 AM EDT from Last 3 Months or Most Recently Relevant to Health Maintenance Results * (ABNORMAL) LIPID PANEL, STANDARD (02/03/2020 8:41 AM EDT) Cholesterol, Total 183 <200 mg/dL [facility] Cholesterol, Total 183 <200 mg/dL [facility] HDL Cholesterol 52 > OR = 40 mg/dL [facility] Cholesterol, Total 183 <200 mg/dL [facility] Chol/HDLC Ratio 3.5 <5.0 (calc) [facility] HDL Cholesterol 52 > OR = 40 mg/dL [facility] Non-HDL Cholesterol 131(H) <130 mg/dL (calc) [facility] Comment: For patients with diabetes plus 1 major ASCVD risk ?? factor, treating to a non-HDL-C goal of <100 mg/dL ?? (LDL-C of <70 mg/dL) is considered a therapeutic ?? option. LDL Cholesterol 101(H) mg/dL (calc) [facility] Comment: Reference range: <100 ?? Desirable range <100 mg/dL for primary prevention; ?? <70 mg/dL for patients with CHD or diabetic patients ?? with > or = 2 CHD risk factors. ?? LDL-C is now calculated using the Omar ?? calculation, which is a validated novel method providing ?? better accuracy than the Friedewald equation in the ?? estimation of LDL-C. ?? Flaco JENNINGS et al. МАРИНА. 2013;310(19): 8476-4814 ?? (http://HackSurfer/faq/AFE919) Triglycerides 178(H) <150 mg/dL [facility] Triglycerides 178(H) <150 mg/dL [facility] LDL Cholesterol 101(H) mg/dL (calc) [facility] Comment: Reference range: <100 ?? Desirable range <100 mg/dL for primary prevention; ?? <70 mg/dL for patients with CHD or diabetic patients ?? with > or = 2 CHD risk factors. ?? LDL-C is now calculated using the Flaco-Gilmore ?? calculation, which is a validated novel method providing ?? better accuracy than the Friedewald equation in the ?? estimation of LDL-C. ?? Flaco SS et al. МАРИНА. 2013;310(19): 7379-6129 ?? (http://HackSurfer/faq/VYK276) Chol/HDLC Ratio 3.5 <5.0 (calc) [facility] Triglycerides 178(H) <150 mg/dL [facility] HDL Cholesterol 52 > OR = 40 mg/dL [facility] LDL Cholesterol 101(H) mg/dL (calc) [facility] Comment: Reference range: <100 ?? Desirable range <100 mg/dL for primary prevention; ?? <70 mg/dL for patients with CHD or diabetic patients ?? with > or = 2 CHD risk factors. ?? LDL-C is now calculated using the Flaco-Gilmore ?? calculation, which is a validated novel method providing ?? better accuracy than the Friedewald equation in the ?? estimation of LDL-C. ?? Flaco JENNINGS et al. МАРИНА. 2013;310(19): 7712-1752 ?? (http://[employer]faq/OBC085) Chol/HDLC Ratio 3.5 <5.0 (calc) [facility] Non-HDL Cholesterol 131(H) <130 mg/dL (calc) [facility] Comment: For patients with diabetes plus 1 major ASCVD risk ?? factor, treating to a non-HDL-C goal of <100 mg/dL ?? (LDL-C of <70 mg/dL) is considered a therapeutic ?? option. Non-HDL Cholesterol 131(H) <130 mg/dL (calc) [facility] Comment: For patients with diabetes plus 1 major ASCVD risk ?? factor, treating to a non-HDL-C goal of <100 mg/dL ?? (LDL-C of <70 mg/dL) is considered a therapeutic ?? option. 02/03/2020 8:41 AM EDT us Ethan Krause MD LAB BLOOD ORDERABLES Final Resul t [facility] [address] from Last 3 Months or Most Recently Relevant to Health Maintenance Insurance MEDICARE * Guarantor: Fabricio Alarcon Account Type Relation to Patient Date of Phone Billing Address Personal/Family Self [address] [phone] Care Teams Assistant Sales Center Manager Relationship Specialty Start Date End Date Name, MD Ethan [address] [place] [id number] PCP - General Family Medicine 05/26/19
== END 2024-12-21 10:11 | disposition home or self-care (01) ==
LOC: HO.HOS 09:42
PROVIDERS: PCP Internal Medicine; Visit Provider Physician Assistant
DX: M17.12 Unilateral primary osteoarthritis, left knee (principal)
CPT/HCPCS: 99203; G2211

== ENCOUNTER → 2024-12-21 09:45 | Outpatient (BNV) | payer MEDICARE, SELFPAY | PROVIDERS: Visit Provider Radiology Diagnostic Radiology | DX: M25.562 Pain in left knee (principal) | CPT/HCPCS: 73560 ==